=== PATIENT | male | born 1955 | race Caucasian/White ===

== ENCOUNTER 2018-03-28 06:04 | Inpatient (IN) | payer OTHER ==
[~2018-03-28] VITALS: Ht 167.6 cm; Wt 54.4 kg
[2018-03-28] VITALS (7 sets, daily range): BP systolic 99–136; BP diastolic 58–70
[~2018-03-28 06:04] MED LIST: DIOVAN320 MG PO; NORVASC10 MG PO; SIMVASTATIN40 MG PO
[2018-03-28 06:37] LABS: ABSOLUTE BASOPHILS 0.1 thou/uL (0.0-0.2); ABSOLUTE EOSINOPHILS 0.4 thou/uL (0.0-0.7); ABSOLUTE LYMPHOCYTES 1.7 thou/uL (0.8-5.3); ABSOLUTE MONOCYTES 0.8 thou/uL (0.0-1.2); ABSOLUTE NEUTROPHILS 4.3 thou/uL (1.6-8.1); BASOPHILS 1.8 %; EOSINOPHILS 5.6 %; HEMATOCRIT 42.1 % (42.0-52.0); HEMOGLOBIN 14.5 gm/dL (14.0-18.0); LYMPHOCYTES 23.6 %; MCH 31.9 pg (26.0-34.0); MCHC 34.4 g/dL (28.0-37.0); MCV 92.8 fL (80.0-100.0); MONOCYTES 10.8 %; MPV 6.8 fl. (7.2-11.1); NUCLEATED RBCS 0 /100WBC; PLATELET COUNT* 298 thou/uL (150-400); POLYS 58.2 %; RBC 4.53 mil/uL (4.50-6.00); RDW-CV 13.9 % (10.5-14.5); WBC 7.4 thou/uL (4.0-11.0)
[2018-03-28 06:41] LABS: CALCIUM 9.5 mg/dL (8.5-10.1); CREATININE 1.1 mg/dL (0.6-1.3); POTASSIUM 4.6 mmol/L (3.5-5.1)
--- NOTE | 2018-03-28 10:05 | EKG ---
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
[2018-03-28 11:05] LABS: HEMATOCRIT 36.2 % (42.0-52.0); HEMOGLOBIN 12.6 gm/dL (14.0-18.0); MCH 32.1 pg (26.0-34.0); MCHC 34.9 g/dL (28.0-37.0); MCV 92.2 fL (80.0-100.0); MPV 6.9 fl. (7.2-11.1); RBC 3.93 mil/uL (4.50-6.00); RDW-CV 13.6 % (10.5-14.5); WBC 10.1 thou/uL (4.0-11.0)
[2018-03-28 11:15] LABS: POTASSIUM 4.4 mmol/L (3.5-5.1)
--- NOTE | 2018-03-28 13:50 | NUR ---
PATIENT ADMITTED TO ROOM 002 AT 1300 FROM PACU. STATUS POST RIGHT CAROTID ENDARTARECTOMY. AOX4. NEUROVASCULAR CHECK INTACT WITH EXCEPTION OF MINOR RIGHT FACIAL DROOP, PROVIDER NOTIFIED IN PACU. INCISION TO RIGHT NECK, WELL APPROXIMATED, SWELLING. SMALL HEMATOMA NOTED, PROVIDER NOTIFIED BY PACU STAFF AND STATED TO JUST CONTINUE ASSESSING IT. PATIENT DRINKING ORAL FLUIDS WELL. LR FROM PACU INFUSING, WILL SALINE LOCK POST COMPLETION. PAIN RATED AT 9/10 IN RIGHT NECK WITH PRESSURE FROM ICE PACK. PRN MOPRHINE GIVEN, TO BE REASSESSED. LAC AND LFA 20G IVS FLUSHED AND WORKING WELL. URINATED 200 IN URINAL OF DARK YELLOW URINE. AT BEDSIDE. ORIENTED TO ROOM, CALL LIGHT WITHIN REACH. DENIES FURTHER CONCERNS AT THIS TIME.
--- NOTE | 2018-03-28 17:13 | NUR ---
PATIENT PROGRESSING TOWARDS ALL GOALS. NO ACUTE EVENTS SINCE ADMISSION. DENIES FURTHER CONCERNS AT THIS TIME. HOPEFUL FOR DISCHARGE IN THE MORNING.
[2018-03-29] VITALS (7 sets, daily range): BP systolic 91–119; BP diastolic 44–60
--- NOTE | 2018-03-29 05:30 | NUR ---
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
[2018-03-29] MEDS ORDERED: NICOTINE TRANSD14 M1 TRANSDERM (09:03)
[2018-03-29] MEDS ORDERED: ASPIRIN325 PO (09:05)
[2018-03-29] MEDS ORDERED: HYDROCODON-ACE1 EAC7 PO (09:08)
--- NOTE | 2018-03-29 09:55 | NUR ---
PT CAME OUT AT 0845 DEMANDING THAT HE WAS GOING TO GO HOME AND COME BACK. HE REPORTS THAT HE WAS TOLD BY STAFF THAT HE WOULD BE OUT OF HERE IN 30 MINUTES. THE PATIENT WAS EDUCATED THAT DISCHARGE TAKES TIME AND THAT HE WOULD HAVE TO WAIT. THE PATIENT STATED THAT HE WOULD LEAVE AND COME BACK. PT WAS TOLD THAT HE COULD LEAVE AMA IF THAT WAS THE CASE. AMA PAPERWORK BROUGHT IN TO PATIENT AND HE DECLINED SIGNING THE PAPERWORK AND SAID HE WOULD WAIT FOR THE PAPERWORK. DISCHARGE PAPERWORK GONE OVER WITH PATIENT HE WAS WALKING OUT THE DOOR. HE REFUSED TO SIGN PAPERWORK ACKNOWLEDGING THAT [employer] GAVE HIM THE DISCHARGE PAPERWORK. PT DID NOT WAIT FOR PRESCRIPTION FOR HYDROCODONE. 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 PT ACKNOWLEDGED THAT HE HAS TO COME BACK AND GET IT. ASSESSMENT CHARTED. VSS. PT UP AMBULATING IN HIS ROOM WITHOUT DIFFICULTY THIS MORNING.
--- NOTE | 2018-04-06 15:18 | OP ---
[facility] [address] [place] [address] OPERATIVE REPORT Name: MAK ROSA Room: [address] IN [facility]#: [id number] Admission: 03/28/18 Attend Phys: Sravan Prado Discharge: 03/29/18 Date of : 53 Report #: [id number] THIS REPORT FOR: //name// CC: Candida Larkin DATE OF SERVICE: 03/28/2018 PREOPERATIVE DIAGNOSIS: Severe symptomatic right internal carotid artery stenosis. POSTOPERATIVE DIAGNOSIS: Severe symptomatic right internal carotid artery stenosis. PROCEDURES: 1. Carotid endarterectomy with patch angioplasty. 2. Intraoperative ultrasound with interpretation. FINDINGS ON ULTRASOUND: 1. Normal waveform velocity identified within the common and internal carotid arteries on the right. 2. No flaps or defects identified on wilson-scale imaging. 3. Patent flow identified in the internal and external carotid arteries on color flow. SURGEON: Dg Tao MD ASSISTANTS: resident Cameron and headend technician. COMPLICATIONS: None. ESTIMATED BLOOD LOSS: 100 mL. SPECIMENS: Includes plaque. ANESTHESIA: General. INDICATIONS FOR PROCEDURE: The patient is a very pleasant 62-year-old white male, who presented to our office with amaurosis fugax of the right eye and a TIA with left leg weakness that has completely resolved. He has a tight lesion of his right internal carotid artery. It was recommended that he undergo a very urgent carotid endarterectomy given his TIA and amaurosis fugax symptoms. Informed consent was obtained from the patient with risks including but not limited to bleeding, infection, need for further surgery, pain, , heart attack, stroke, cranial nerve injury. He understood these risks and was [facility] [address] [place] [address] OPERATIVE REPORT Name: MAK ROSA Room: [address]#: [id number] Admission: 03/28/18 Attend Phys: Sravan Prado Discharge: 03/29/18 Date of : 53 Report #: [id number] agreeable to proceed. DESCRIPTION OF PROCEDURE: The patient was taken to the OR and placed in supine position. After adequate general anesthesia was initiated, timeout was performed. The patient's right neck was prepped and draped in usual sterile fashion. The patient received appropriate perioperative antibiotics. The patient was systemically heparinized throughout the critical portion of the procedure. I created a transverse incision in the patient's right neck. Sharp and blunt dissections were carried down to the common carotid artery. I entered the carotid sheath. I controlled the branches of the internal and external carotid artery. I created a longitudinal arteriotomy from the common onto the internal carotid artery. There was a large amount of friable, ulcerative, severely stenotic plaque. I placed a 10 shunt without difficulty. I used a [place] elevator and a pair of pickups to perform endarterectomy of the common carotid artery. I performed an eversion endarterectomy of the external carotid artery and I continued my endarterectomy up into the internal. The plaque extended quite a ways. I reached the limits of how high I could dissect out the plaque and still did not get through a good endpoint. I transected the plaque at this location. I tacked down the leading edge of the flap, leading into the more distal internal carotid artery using 7-0 Prolene suture. I then used a bovine pericardial patch 8 x 0.8 and a running 6-0 Prolene suture to close my arteriotomy. At the completion of the repair, there was adequate hemostasis and excellent blood flow into the internal and external carotid arteries. I performed intraoperative ultrasound with findings noted above. I corrected the heparin with protamine, controlled bleeding as needed with electrocautery, ties and clips and as well as some Bibi. I closed the wound in multiple layers using 2-0 Vicryl, 3-0 Vicryl and Stratafix for the skin. Incision was dressed with Dermabond. The patient was taken alert and awake to recovery room in good condition, moving all extremities without evidence of TIA or stroke. <ELECTRONICALLY SIGNED> By: Renny Hope DO 04/06/18 1518 1010 Brad Tao MD /genia
--- NOTE | 2018-06-25 14:10 | PATH ---
[facility] [address] [facility] [place] [address] PATHOLOGY RPT PROCEDURE Name: SHELLEYMAK Yousif Room: [address] IN ..#: [id number] Admission: 03/28/18 Date of : 53 Discharge: 03/29/18 Report #: [id number] Path Case #: [id number] [facility] Accession Number: [id number] . 01 Material submitted: . RIGHT CAROTID PLAQUE . 01 Clinical history: . Carotid artery plaque . 02 Diagnosis: Right carotid plaque: - Fibrointimal atherosclerotic plaque with prominent calcification. (JU:; 03/31/18) QRQ/03/31/2018 . 02 Electronically signed: . Jose Roberts MD, Pathologist NPI- [id number] . 01 Gross description: . The specimen is received in formalin, labeled "[place], right carotid plaque". Received are multiple segments of slightly calcified pale padilla rubbery tissue measuring 2.6 x 2.5 x 1.0 cm in aggregate dimensions. The specimen is submitted representatively in cassette A1, following light decalcification. (CAA; 03/28/2018) QAC/QAC . 02 Pathologist provided ICD-10: I65.21 . 02 CPT . 501926, 421067 Performed at: [address], [place] [id number] MD Tyler Trivedi MD Phone: [phone] Performed at: 02 [facility] [address], [place], [place] [id number] MD Jose Roberts MD Phone: [phone]
== END 2018-03-29 09:15 | disposition home or self-care (01) | DRG 39 ==
LOC: M.TBA 06:04 → M.PRE 06:43 → M.ICU 13:00 → M.PRE 13:45 → M.ICU 03-29 09:15
PROVIDERS: Surgery Vascular Surgery; ADMIT Internal Medicine
PROC: 03CK0ZZ Extirpation of Matter from Right Internal Carotid Artery, Open Approach (ICD-10-PCS; principal; 2018-03-28)
PROC: 03UK0KZ Supplement Right Internal Carotid Artery with Nonautologous Tissue Substitute, Open Approach (ICD-10-PCS; principal; 2018-03-28)
DX: I65.21 Occlusion and stenosis of right carotid artery (principal); E78.5 Hyperlipidemia, unspecified; I73.9 Peripheral vascular disease, unspecified; I10 Essential (primary) hypertension; J44.9 Chronic obstructive pulmonary disease, unspecified; F17.210 Nicotine dependence, cigarettes, uncomplicated; N40.0 Benign prostatic hyperplasia without lower urinary tract symptoms; Z79.82 Long term (current) use of aspirin; Z79.899 Other long term (current) drug therapy

== ENCOUNTER 2018-04-02 10:54 | Observation (INO) | payer OTHER ==
[~2018-04-02] VITALS: Ht 152.4 cm; Wt 53.1 kg
[~2018-04-02 10:54] MED LIST changes: +ASPIRIN325 PO; +HYDROCODON-ACE1 EAC7 PO; +NICOTINE TRANSD14 M1 TRANSDERM
[2018-04-02 10:58] VITALS: BP 141/62
[2018-04-02 11:16] LABS: ABSOLUTE BASOPHILS 0.1 thou/uL (0.0-0.2); ABSOLUTE EOSINOPHILS 0.3 thou/uL (0.0-0.7); ABSOLUTE LYMPHOCYTES 1.9 thou/uL (0.8-5.3); ABSOLUTE NEUTROPHILS 6.4 thou/uL (1.6-8.1); BASOPHILS 1.2 %; EOSINOPHILS 2.8 %; HEMATOCRIT 36.6 % (42.0-52.0); HEMOGLOBIN 12.6 gm/dL (14.0-18.0); LYMPHOCYTES 19.5 %; MCH 31.9 pg (26.0-34.0); MCHC 34.4 g/dL (28.0-37.0); MCV 92.5 fL (80.0-100.0); MONOCYTES 9.9 %; MPV 6.8 fl. (7.2-11.1); NUCLEATED RBCS 0 /100WBC; PLATELET COUNT* 313 thou/uL (150-400); POLYS 66.6 %; RBC 3.95 mil/uL (4.50-6.00); RDW-CV 13.5 % (10.5-14.5); WBC 9.7 thou/uL (4.0-11.0)
[2018-04-02 11:28] LABS: ANION GAP 8 mmol/L (7-16); BUN 18 mg/dL (7-18); CALCIUM 9.1 mg/dL (8.5-10.1); CHLORIDE 102 mmol/L (98-107); CO2 28 mmol/L (21-32); CREATININE 1.1 mg/dL (0.6-1.3); GLUCOSE 119 mg/dL (70-99); POTASSIUM 4.4 mmol/L (3.5-5.1); SODIUM 138 mmol/L (136-145)
[2018-04-02 11:30] LABS: APTT 26.4 Seconds (25.0-31.3); PROTIME 9.7 Seconds (9.20-11.50)
[2018-04-02 11:38] LABS: ALBUMIN 3.4 g/dL (3.4-5.0); ALKALINE PHOSPHATASE 70 U/L (46-116); NT-PRO BRAIN NAT PEPTIDE 114 pg/mL (<300); SGOT 17 U/L (15-37); SGPT 16 U/L (30-65); TOTAL BILIRUBIN 0.3 mg/dL (<0.1-1.0); TROPONIN-I LEVEL <0.06 ng/mL (<0.06)
[2018-04-02 12:07] LABS: URINE BILIRUBIN NEGATIVE (Negative); URINE BLOOD NEGATIVE (Negative); URINE CLARITY CLEAR; URINE COLOR YELLOW; URINE GLUCOSE-RANDOM NEGATIVE (Negative); URINE KETONES TRACE (Negative); URINE LEUKOCYTES-REFLEX NEGATIVE (Negative); URINE NITRITE-REFLEX NEGATIVE (Negative); URINE PROTEIN TRACE (Negative); URINE SPECIFIC GRAVITY 1.025 (1.005-1.030); URINE UROBILINOGEN 0.2 E.U./dl (0.2-1.0)
[2018-04-02 14:18] VITALS: BP 157/72
--- NOTE | 2018-04-02 15:53 | EKG ---
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
[2018-04-02 16:00] VITALS: BP 156/65
--- NOTE | 2018-04-02 16:52 | 2DMMODE ---
[place] [address] 2 D/M-MODE ECHOCARDIOGRAM Name: MAK ROSA Room: [address] IN [facility]#: [id number] Admission: 04/02/18 Attend Phys: Rudy Harden, Discharge: Date of : 53 Date of Service: 04/02/18 1651 Report #: [id number] THIS REPORT FOR: //name// APPROVED REPORT Study performed: 04/02/2018 15:32:00 EXAM: Comprehensive 2D, Doppler, and color-flow Echocardiogram Patient Location: In-Patient Room #: [facility] Status: routine BSA: 1.60 HR: 86 bpm BP: 157/72 mmHg Rhythm: NSR Other Information Study Quality: Good Indications CVA/TIA Echo Enhancing Agent Indication: Rule out Shunt Agent(s) / Amount(s) Used: Agitated Saline 10 cc 2D Dimensions LVEF(%): 62.07 (>50%) IVSd: 9.29 (7-11mm) LVOT Diam: 20.69 (18-24mm) LVDd: 36.59 mm PWd: 8.65 (7-11mm) LVDs: 24.61 (25-40mm) Aortic Root: 29.12 mm Vizcarra's LVEF: 62.07 % Volumes Left Atrial Volume (Systole) LA ESV Index: 22.90 mL/m2 Aortic Valve AoV Peak Easton.: 1.12 m/s AO Peak Gr.: 5.06 mmHg LVOT Max P.88 mmHg AO Mean Gr.: 2.96 mmHg LVOT Mean P.50 mmHg LVOT Max V: 1.10 m/s AO V2 VTI: 23.95 cm LVOT Mean V: 0.74 m/[place] [address] 2 D/M-MODE ECHOCARDIOGRAM Name: MAK ROSA Room: [address] IN ..#: [id number] Admission: 04/02/18 Attend Phys: Rudy Harden, Discharge: Date of : 53 Date of Service: 04/02/18 1651 Report #: [id number] BETTY (VTI): 3.54 cm2 LVOT V1 VTI: 25.22 cm Mitral Valve E/A Ratio: 0.85 MV Decel. Time: 178.19 ms MV E Max Easton.: 0.97 m/s MV PHT: 51.67 ms MVA (PHT): 4.26 cm2 TDI E/Lateral E': 7.46 E/Medial E': 9.70 Medial E' Easton.: 0.10 m/s Lateral E' Easton.: 0.13 m/s Pulmonary Valve PV Peak Easton.: 0.94 m/s PV Peak Gr.: 3.57 mmHg Tricuspid Valve TR Peak Gr.: 21.46 mmHg RVSP: 26.00 mmHg Left Ventricle The left ventricle is normal size. There is normal LV segmental wall motion. There is normal left ventricular wall thickness. Left ventricular systolic function is normal. The left ventricular ejection fraction is within the normal range. LVEF is 60-65%. Grade I - abnormal relaxation pattern. Right Ventricle The right ventricle is normal size. The right ventricular systolic function is normal. Atria The left atrium size is normal. Interatrial septum is intact without evidence of ASD or PFO. The right atrium size is normal. Aortic Valve Moderate aortic valve sclerosis. No aortic regurgitation is present. There is no aortic valvular stenosis. Mitral Valve There is mitral annular calcification. There is no mitral valve regurgitation noted. No evidence of mitral valve stenosis. Tricuspid Valve The tricuspid valve is normal in structure. Mild tricuspid regurgitation. The RVSP is ___26____ [place] [address] 2 D/M-MODE ECHOCARDIOGRAM Name: MAK ROSA Room: [address] IN M.R.#: [id number] Admission: 04/02/18 Attend Phys: Rudy Harden, Discharge: Date of : 53 Date of Service: 04/02/18 1651 Report #: [id number] Pulmonic Valve The pulmonary valve is normal in structure. Trace pulmonic regurgitation. Great Vessels The aortic root is normal in size. IVC is normal in size and collapses with >50% inspiration Pericardium There is no pericardial effusion. <Conclusion> The left ventricle is normal size. There is normal left ventricular wall thickness. Left ventricular systolic function is normal. The left ventricular ejection fraction is within the normal range. LVEF is 60-65%. Grade I - abnormal relaxation pattern. The right ventricle is normal size. The left atrium size is normal. Moderate aortic valve sclerosis. No aortic regurgitation is present. There is no aortic valvular stenosis. There is mitral annular calcification. There is no mitral valve regurgitation noted. No evidence of mitral valve stenosis. The tricuspid valve is normal in structure. Mild tricuspid regurgitation. The RVSP is ___26____ mmHg. IVC is normal in size and collapses with >50% inspiration There is no pericardial effusion. There is normal LV segmental wall motion. Interatrial septum is intact without evidence of ASD or PFO. <ELECTRONICALLY SIGNED> By: Luther Wang MD, FACC 04/02/181650 50 50 Luther Wang MD, FACC /INF
[2018-04-02 20:56] VITALS: BP 115/71
[2018-04-03] VITALS: BP 124/58
[2018-04-03 04:00] VITALS: BP 119/56
[2018-04-03 04:06] LABS: GLYCOHEMOGLOBIN (HGB A1C) 5.4 % (4.8-5.6)
[2018-04-03 04:57] LABS: ABSOLUTE BASOPHILS 0.1 thou/uL (0.0-0.2); ABSOLUTE EOSINOPHILS 0.3 thou/uL (0.0-0.7); ABSOLUTE LYMPHOCYTES 2.1 thou/uL (0.8-5.3); ABSOLUTE MONOCYTES 0.9 thou/uL (0.0-1.2); ABSOLUTE NEUTROPHILS 4.8 thou/uL (1.6-8.1); BASOPHILS 1.2 %; EOSINOPHILS 3.6 %; HEMATOCRIT 35.1 % (42.0-52.0); HEMOGLOBIN 12.1 gm/dL (14.0-18.0); MCH 31.9 pg (26.0-34.0); MCHC 34.3 g/dL (28.0-37.0); MCV 92.9 fL (80.0-100.0); MONOCYTES 10.6 %; MPV 7.1 fl. (7.2-11.1); NUCLEATED RBCS 0 /100WBC; PLATELET COUNT* 296 thou/uL (150-400); POLYS 58.6 %; RBC 3.78 mil/uL (4.50-6.00); RDW-CV 13.6 % (10.5-14.5); WBC 8.2 thou/uL (4.0-11.0)
[2018-04-03 05:12] LABS: ANION GAP 8 mmol/L (7-16); BUN 16 mg/dL (7-18); CHLORIDE 101 mmol/L (98-107); CHOLESTEROL 142 mg/dL (<200); CO2 28 mmol/L (21-32); CREATININE 0.9 mg/dL (0.6-1.3); GLUCOSE 94 mg/dL (70-99); HDL CHOLESTEROL 54 mg/dL (>40); LDL CHOLESTEROL 76 mg/dL (<100); POTASSIUM 4.9 mmol/L (3.5-5.1); SERUM ASSESSMENT Clear; SODIUM 137 mmol/L (136-145); TC:HDL 2.6 Ratio (Not establshd); TRIGLYCERIDE 64 mg/dL (<150); VLDL 13 mg/dL (<40)
[2018-04-03 08:00] VITALS: BP 149/62
[2018-04-03 12:04] VITALS: BP 149/62
[2018-04-03] MEDS ORDERED: AUGMENTIN 875-1 EACH PO (12:04)
== END 2018-04-03 12:32 | disposition home or self-care (01) ==
LOC: M.ERS 10:54 → M.2W 12:10 → M.TBA-ER 12:10 → M.2W 12:10
PROVIDERS: Family Medicine; ADMIT Internal Medicine
DX: I65.21 Occlusion and stenosis of right carotid artery (principal); H53.8 Other visual disturbances; G44.221 Chronic tension-type headache, intractable; J20.9 Acute bronchitis, unspecified; J43.9 Emphysema, unspecified; I73.9 Peripheral vascular disease, unspecified; J44.9 Chronic obstructive pulmonary disease, unspecified; I10 Essential (primary) hypertension; E78.5 Hyperlipidemia, unspecified; F17.210 Nicotine dependence, cigarettes, uncomplicated; Z95.828 Presence of other vascular implants and grafts; Z72.89 Other problems related to lifestyle

== ENCOUNTER → 2018-09-09 | Outpatient (CLI) | payer OTHER ==
[~2018-09-09] MED LIST changes: +AUGMENTIN 875-1 EACH PO
== END ==
LOC: M.RAD 07:53
DX: J44.9 Chronic obstructive pulmonary disease, unspecified (principal); R04.2 Hemoptysis

== ENCOUNTER 2021-02-27 07:01 | Inpatient (IN) | payer OTHER ==
[~2021-02-27] VITALS: Ht 167.6 cm; Wt 53.9 kg
[2021-02-27] VITALS (47 sets, daily range): BP systolic 72–149; BP diastolic 20–102
--- NOTE | ~2021-02-27 | PROC ---
[facility] [address] [place] [address] PROCEDURE REPORT Name: MAK ROSA Room: [address] IN .R.#: [id number] Admission: 02/27/21 Attend Phys: Sravan Prado Discharge: 03/28/21 Date of : 53 Report #: [id number] THIS REPORT FOR: cc: Candida Chavez MD, Katrina MD [facility],Medical Records Staff ~ For GI report, please see the Provation report in Perceptive 7 content. By: 1442Medical Records Staff [facility] /EHSAN
[2021-02-27] MEDS ORDERED: FAMOTIDINE 20 M20 MG PO (07:18)
[2021-02-27] MEDS ORDERED: TOPROL XL100 MG PO (07:19)
[2021-02-27] MEDS ORDERED: FEOSOL325 M1 PO (07:19)
[2021-02-27] MEDS ORDERED: LIPITOR40 MG PO (07:20)
[2021-02-27] MEDS ORDERED: ASA81BEC PO (07:20)
[2021-02-27] MEDS ORDERED: MIRALAX119 GM PO (07:20)
[2021-02-27] MEDS ORDERED: TRELEGY ELLIPT1 EACH INH (07:21)
[2021-02-27] MEDS ORDERED: SUPER THERAVIT1 EACH PO (07:21)
[2021-02-27 07:49] LABS: ABSOLUTE LYMPHOCYTES 0.7 thou/uL (0.8-5.3); ABSOLUTE MONOCYTES 0.7 thou/uL (0.0-1.2); ABSOLUTE NEUTROPHILS 4.6 thou/uL (1.6-8.1); BASOPHILS 0.2 %; EOSINOPHILS 0.2 %; HEMATOCRIT 41.8 % (42.0-52.0); HEMOGLOBIN 13.8 gm/dL (14.0-18.0); LYMPHOCYTES 11.4 %; MCHC 33.1 g/dL (28.0-37.0); MCV 93.6 fL (80.0-100.0); MPV 8.2 fl. (7.2-11.1); NUCLEATED RBCS 0 /100WBC; PLATELET COUNT* 326 thou/uL (150-400); POLYS 77.2 %; RBC 4.47 mil/uL (4.50-6.00); RDW-CV 16.9 % (10.5-14.5)
[2021-02-27 08:04] LABS: ALBUMIN 3.3 g/dL (3.4-5.0); CALCIUM 9.4 mg/dL (8.5-10.1); POTASSIUM 4.2 mmol/L (3.5-5.1); TOTAL BILIRUBIN 0.6 mg/dL (<0.1-1.0); TOTAL PROTEIN 7.2 g/dL (6.4-8.2)
[2021-02-27 08:41] LABS: % SATURATION 10 % (20-39); IRON 28 ug/dL (50-175)
--- NOTE | 2021-02-27 09:55 | EKG ---
[place] [address] ELECTROCARDIOGRAM REPORT Name: MAK ROSA Room: [address]R.#: [id number] Admission: 02/27/21 Attend Phys: Omi Larkin Discharge: Date of : 53 Date of Service: 02/27/21 0747 Report #: [id number] THIS REPORT FOR: //name// [facility] ED Test Date: 2021-02-27 Test Time: 07:47:00 Pat Name: MAK ROSA Department: Room: [facility] Gender: M Ceo: MANFRED : 1955 Requested By: Jero Quick Order Number: [id number] MD: uRben Spencer Measurements Intervals [place] Rate: 99 P: 72 MD: 162 QRS: 86 QRSD: 88 T: 239 QT: 324 QTc: 416 Interpretive Statements Sinus rhythm Borderline right axis deviation Borderline repolarization abnormality artifact noted Compared to ECG 04/02/2018 11:02:50 ST (T wave) deviation now present Electronically Signed On 02-27-2021 9:55:26 CDT by Ruben Spencer [email or web address] <ELECTRONICALLY SIGNED> By: Ruben Spencer MD, [facility] 02/27/21 0955 0747 0747 Ruben Spencer MD, [facility] /EPI
--- NOTE | 2021-02-27 13:25 | NUR ---
ADMIT FROM ER TO RM 223 PATIENT TO FLOOR VIA BED ASSIST OF 1 TO BED IN ROOM ORIENTED TO RM AND CALL LIGHT AT BEDSIDE
[2021-02-27 15:14] LABS: ABSOLUTE LYMPHOCYTES 0.4 thou/uL (0.8-5.3); ABSOLUTE MONOCYTES 0.3 thou/uL (0.0-1.2); ABSOLUTE NEUTROPHILS 2.7 thou/uL (1.6-8.1); BASOPHILS 0.1 %; EOSINOPHILS 0.1 %; HEMATOCRIT 39.7 % (42.0-52.0); HEMOGLOBIN 13.2 gm/dL (14.0-18.0); LYMPHOCYTES 11.9 %; MCH 30.8 pg (26.0-34.0); MCHC 33.2 g/dL (28.0-37.0); MCV 92.9 fL (80.0-100.0); MPV 7.8 fl. (7.2-11.1); NUCLEATED RBCS 0 /100WBC; PLATELET COUNT* 285 thou/uL (150-400); POLYS 79.9 %; RBC 4.27 mil/uL (4.50-6.00); RDW-CV 16.6 % (10.5-14.5); WBC 3.3 thou/uL (4.0-11.0)
[2021-02-27 15:21] LABS: CALCIUM 8.7 mg/dL (8.5-10.1); CREATININE 2.6 mg/dL (0.6-1.3); POTASSIUM 4.8 mmol/L (3.5-5.1)
--- NOTE | 2021-02-27 15:41 | EKG ---
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 : 1955 Requested By: Jero Quick Order Number: [id number] MD: Ruben Spencer Measurements Intervals [place] Rate: 92 P: 66 MN: 150 QRS: 86 QRSD: 87 T: 257 QT: 350 QTc: 433 Interpretive Statements Sinus rhythm Borderline right axis deviation Nonspecific T abnormalities, diffuse leads Compared to ECG 02/27/2021 07:47:00 no change Electronically Signed On 02-27-2021 15:40:57 CDT by Ruben Spencer [email or web address] <ELECTRONICALLY SIGNED> By: Ruben Spencer MD, [facility] 02/27/21 1540 0809 0809 Ruben Spencer MD, [facility] /EPI
--- NOTE | 2021-02-27 18:20 | NUR ---
PATIENT WITH INCREASING RESP DISTRESS NOW ON BIPAP R IN THE 30S AND HR 130S CALL TO DR TO MOVE TO ICU TX TO ICU RM 5 PATIENT WITH BELONGIGNS MOVED VIA BED ON BIPAP NOTIFIED
--- NOTE | 2021-02-27 20:38 | NUR ---
PATIENT ARRIVED AT 1823 IN ICU BED 5. TELE NURSES AT BEDSIDE. PATIENT PLACED IN ICU BED AND HOOKED UP TO MONITOR. PATIENT ON BIPAP 100%FIO2 WITH SATS IN THE LOW 90'S, LABORED BREATHING, AND TACHYPNEA WITH RR IN UPPER TO LOW 40'S. DR RIGGS NOTIFIED. DR RIGGS CAME TO BEDSIDE AND ORDERED FOR PATIENT TO BE INTUBATED. ER PHYSICIAN CALLED AND DR PRATHER WAS RIGHT OVER TO THE ICU. MEDICATIONS WERE GIVEN PER ORDERS TO RELAX AND SEDATE PATIENT. HE WAS INTUBATED WITH A 7.5 ETT 22 AT LIP. OG PLACED AT 65 AT LIP, PLACEMENT CHECKED. PATIENT TOLERATED PROCEDURE. PATIENT'S SHOSHANA WAS NOTIFIED AND MADE AWARE OF THE SITUATION. REPORT GIVEN TO ONCOMING NURSE. NO FURTHER CONCERNS AT THIS TIME. WILL CONTINUE TO MONITOR AND CARE PER PLAN OF CARE.
[2021-02-27 22:03] LABS: BE -1.9 mmol/L (-2 to +3)
[2021-02-27 22:07] LABS: PCO2 70.4 mmHg (35.0-45.0); pH 7.211 (7.340-7.450)
--- NOTE | 2021-02-27 22:22 | NUR ---
1900 Dr Lara to see pt. Decision was made to intubate. 1909 Dr. Alvarenga to Rm 191 Etomidate 20mg, Succinylcholine 100mg, Versed 5mg for sedation. [address] Alvarenga intubated with 7.5 ETT 22 at the teeth. OG placed at 65 cm suction 500 dark brown in 5min. PT became hypotensive, OG clamped for 1hr. 4L NS bolus given see DEC for sedation ordered 2014 ETT advanced to 24cm
[2021-02-28] VITALS (44 sets, daily range): BP systolic 69–197; BP diastolic 39–117
[2021-02-28 00:59] LABS: BE -2.4 mmol/L (-2 to +3)
[2021-02-28 01:16] LABS: PCO2 52.6 mmHg (35.0-45.0); PO2 59.3 mmHg (75.0-100.0)
[2021-02-28 03:17] LABS: HEMATOCRIT 36.6 % (42.0-52.0); HEMOGLOBIN 12.2 gm/dL (14.0-18.0); MCH 31.5 pg (26.0-34.0); MCHC 33.2 g/dL (28.0-37.0); MCV 94.9 fL (80.0-100.0); MPV 8.8 fl. (7.2-11.1); RBC 3.86 mil/uL (4.50-6.00); RDW-CV 16.7 % (10.5-14.5)
[2021-02-28 03:27] LABS: WBC 1.3 thou/uL (4.0-11.0)
[2021-02-28 03:30] LABS: CALCIUM 7.1 mg/dL (8.5-10.1); CREATININE 2.5 mg/dL (0.6-1.3); POTASSIUM 4.3 mmol/L (3.5-5.1)
[2021-02-28 04:49] LABS: BE -5.2 mmol/L (-2 to +3); PCO2 44.7 mmHg (35.0-45.0); PO2 75.7 mmHg (75.0-100.0)
[2021-02-28 04:58] LABS: pH 7.294 (7.340-7.450)
[2021-02-28 11:39] LABS: BE -7.3 mmol/L (-2 to +3); PCO2 42.5 mmHg (35.0-45.0); PO2 79.8 mmHg (75.0-100.0)
[2021-02-28 11:40] LABS: pH 7.273 (7.340-7.450)
[2021-02-28 12:04] LABS: ALBUMIN 1.8 g/dL (3.4-5.0); CALCIUM 6.9 mg/dL (8.5-10.1); CREATININE 3.1 mg/dL (0.6-1.3); MAGNESIUM 1.9 mg/dL (1.8-2.4); PHOSPHORUS* 6.4 mg/dL (2.5-4.9); POTASSIUM 4.8 mmol/L (3.5-5.1); TOTAL BILIRUBIN 0.4 mg/dL (<0.1-1.0); TOTAL PROTEIN 4.3 g/dL (6.4-8.2)
[2021-02-28 12:07] LABS: HEMATOCRIT 27.9 % (42.0-52.0); MCH 31.3 pg (26.0-34.0); MCHC 32.6 g/dL (28.0-37.0); MCV 96.2 fL (80.0-100.0); MPV 8.4 fl. (7.2-11.1); NUCLEATED RBCS 0 /100WBC; PLATELET COUNT* 163 thou/uL (150-400); RDW-CV 17.1 % (10.5-14.5)
[2021-02-28 12:08] LABS: HEMOGLOBIN 9.1 gm/dL (14.0-18.0); WBC 4.9 thou/uL (4.0-11.0)
[2021-02-28 12:28] LABS: APTT 41.4 Seconds (25.0-31.3); INR 1.3; PROTIME 13.5 Seconds (9.20-11.50)
[2021-02-28 12:34] LABS: ABSOLUTE LYMPHOCYTES 0.5 thou/uL (0.8-5.3); ABSOLUTE MONOCYTES 0.2 thou/uL (0.0-1.2); ABSOLUTE NEUTROPHILS 4.1 thou/uL (1.6-8.1); PLATELET ESTIMATE ADEQUATE
[2021-02-28 13:54] LABS: URINE BILIRUBIN NEGATIVE (Negative); URINE BLOOD 1+ (Negative); URINE CLARITY CLEAR; URINE COLOR DARK YELLOW; URINE GLUCOSE-RANDOM NEGATIVE (Negative); URINE KETONES NEGATIVE (Negative); URINE LEUKOCYTES-REFLEX NEGATIVE (Negative); URINE NITRITE-REFLEX NEGATIVE (Negative); URINE PROTEIN 1+ (Negative); URINE SPECIFIC GRAVITY 1.025 (1.005-1.030); URINE UROBILINOGEN 0.2 E.U./dl (0.2-1.0)
[2021-02-28 14:02] LABS: CASTS None Seen /LPF (None Seen); CRYSTALS None Seen /LPF (None Seen); SQUAMOUS 0-3 Few /LPF (0-3); URINE RBC 0-2 Rare /HPF (0-2); URINE WBC-REFLEX 0-5 Rare /HPF (0-5)
--- NOTE | 2021-02-28 14:29 | NUR ---
RIGHT BASILIC VESSEL ACCESSED FOR 5 BULGARIAN TRIPLE LUMEN PICC. LINE PRE-TRIMMED TO 38CM AND ADVANCED TO THE ZERO MAK WITH NO RESISTANCE MET. UPPER AMR CICUMFERENCE ABOVE INSERTION SITE= 8 1/2". SHERLOCK MAGNET AND 3CG CONFIRAMTION OF TIP TERMINATION AT THE CAVOATRIAL JUNCTION APPRECIATED. GUIDE WIRE REMOVED, LINE FLUSHED AND INSERTION SITE DRESSED. REPORT GIVEN TO JAJA HEATH.
--- NOTE | 2021-02-28 15:57 | NUR ---
ICU rounds: Pt intubated and sedated. Art line. Pt had open heart surgery r6ywwow ago at [facility]. ABD xray planned. away from bedside when CM went to assess, will attempt to assess later.
--- NOTE | 2021-02-28 15:59 | 2DMMODE ---
[place] [address] 2 D/M-MODE ECHOCARDIOGRAM Name: MAK ROSA Room: [address] IN [facility]#: [id number] Admission: 02/27/21 Attend Phys: Omi Larkin Discharge: Date of : 53 Date of Service: 02/28/21 1558 Report #: [id number] THIS REPORT FOR: cc: Candida Chavez MD, Katrina MD Liston, Michael J. MD [facility] ~ APPROVED REPORT Study performed: 02/28/2021 14:43:25 EXAM: Comprehensive 2D, Doppler, and color-flow Echocardiogram Patient Location: In-Patient Room #: [facility] Status: routine BSA: 1.59 HR: 108 bpm BP: 78/48 mmHg Rhythm: NSR Other Information Study Quality: Adequate Technically limited study due to off axis apical imaging. Indications CAD 2D Dimensions IVSd: 7.54 (7-11mm) LVOT Diam: 22.15 (18-24mm) LVDd: 35.32 mm PWd: 5.85 (7-11mm) LVDs: 20.40 (25-40mm) Aortic Root: 29.15 mm Aortic Valve AoV Peak Easton.: 1.46 m/s AO Peak Gr.: 8.53 mmHg LVOT Max P.80 mmHg AO Mean Gr.: 4.43 mmHg LVOT Mean P.46 mmHg LVOT Max V: 1.10 m/s AO V2 VTI: 20.67 cm LVOT Mean V: 0.73 m/s BETTY (VTI): 2.82 cm2 LVOT V1 VTI: 15.10 cm Mitral Valve E/A Ratio: 0.64 [place] [address] 2 D/M-MODE ECHOCARDIOGRAM Name: MAK ROSA Room: [address] IN ..#: [id number] Admission: 02/27/21 Attend Phys: Omi Larkin Discharge: Date of : 53 Date of Service: 02/28/21 1558 Report #: [id number] MV Decel. Time: 171.57 ms MV E Max Easton.: 0.91 m/s MV PHT: 49.76 ms MVA (PHT): 4.42 cm2 Pulmonary Valve PV Peak Easton.: 1.34 m/s PV Peak Gr.: 7.21 mmHg Tricuspid Valve RAP Estimate: 5.00 mmHg TR Peak Gr.: 39.88 mmHg RVSP: 44.00 mmHg PA Pressure: 44.00 mmHg Left Ventricle The left ventricle is normal size. There is normal LV segmental wall motion. There is normal left ventricular wall thickness. Left ventricular systolic function is normal. LVEF is 65-70%. Grade I - abnormal relaxation pattern. Right Ventricle The right ventricle is normal size. The right ventricular systolic function is normal. Atria The left atrium size is normal. The right atrium size is normal. Aortic Valve Mild aortic valve sclerosis. No aortic regurgitation is present. There is no aortic valvular stenosis. Mitral Valve There is mitral annular calcification. There is no mitral valve regurgitation noted. No evidence of mitral valve stenosis. Tricuspid Valve The tricuspid valve is normal in structure. Mild tricuspid regurgitation. Moderate pulmonary hypertension. The RVSP is 45-50 mmHg. Pulmonic Valve The pulmonary valve is normal in structure. Mild pulmonic regurgitation. Great Vessels The aortic root is normal in size. IVC [place] [address] 2 D/M-MODE ECHOCARDIOGRAM Name: SHELLEYMAK Dodd Room: [address] IN [facility].#: [id number] Admission: 02/27/21 Attend Phys: Omi Larkin Discharge: Date of : 53 Date of Service: 02/28/21 1558 Report #: [id number] collapses >50% with inspiration. Pericardium There is no pericardial effusion. <Conclusion> The left ventricle is normal size. There is normal left ventricular wall thickness. Left ventricular systolic function is normal. LVEF is 65-70%. Grade I - abnormal relaxation pattern. There is normal LV segmental wall motion. Mild aortic valve sclerosis. There is mitral annular calcification. Mild tricuspid regurgitation. Moderate pulmonary hypertension. The RVSP is 45-50 mmHg. <ELECTRONICALLY SIGNED> By: Justin Bravo MD, FACC 02/28/21 1558 1558 1558 Justin Bravo MD, FACC /INF
[2021-02-28 16:28] LABS: CALCIUM 6.7 mg/dL (8.5-10.1); CREATININE 2.8 mg/dL (0.6-1.3)
[2021-02-28 16:29] LABS: POTASSIUM 3.8 mmol/L (3.5-5.1)
[2021-02-28 16:41] LABS: BE -6.7 mmol/L (-2 to +3); PCO2 36.3 mmHg (35.0-45.0); pH 7.328 (7.340-7.450)
[2021-02-28 16:44] LABS: PO2 126.9 mmHg (75.0-100.0)
--- NOTE | 2021-02-28 17:24 | CON ---
[address] [address] CONSULTATION Name: MAK ROSA Room: [address] IN [facility]#: [id number] Admission: 02/27/21 Attend Phys: Sravan Prado Discharge: Date of : 53 Report #: [id number] THIS REPORT FOR: cc: Candida Chavez MD, Katrina MD Blick,Ruben Calhoun MD [facility] ~ DOC #: [id number] cc: MD Ruben Alejandro MD [facility] DATE OF CONSULTATION: 02/27/2021 CARDIOLOGY CONSULTATION HISTORY OF PRESENT ILLNESS: The patient is a 65-year-old white male whom I was asked to see in the emergency room today because of his history of coronary artery disease. The patient states that he has a long history of PAD. He was found to have coronary artery disease and on 01/27/2021, underwent 3-vessel bypass surgery at [facility] [place] He was just discharged a couple weeks ago. Since he has been discharged, he has not felt very well. He has had no appetite. Denies any chest tightness or increased shortness of breath. He has had some edema. Recently, he has been vomiting. He notes his blood was black. He actually saw his primary care physician and the surgical team 3 days ago as an outpatient. No changes were made. However, in the weekend, he continued to vomit black vomitus. He denies any syncope. He has had no blood in the stool. He finally came to the hospital today and was admitted for further evaluation and treatment. He denied any fever, abdominal pain. PAST MEDICAL HISTORY: He has had previous right carotid endarterectomy. Eight years ago, he was found to have PAD and underwent aortobifemoral bypass surgery at [facility]. Three years ago, he apparently had a stent placed in his right arm. His past medical history, otherwise significant for appendectomy. He has a history of high blood pressure, high cholesterol. He has a nebulizer. He is on home oxygen. CURRENT MEDICATIONS: Include amlodipine, aspirin, Lipitor, Pepcid, iron, metoprolol, MiraLax. ALLERGIES: HE HAS PREVIOUS INTOLERANCE TO SEROQUEL, WHICH MADE HIM CONFUSED. FAMILY HISTORY: Negative for heart disease. SOCIAL HISTORY: He is . His lives in [place]. 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 He still smokes half [place] [address] CONSULTATION Name: MAK ROSA Room: [address]#: [id number] Admission: 02/27/21 Attend Phys: Sravan Prado Discharge: Date of : 53 Report #: [id number] alcohol abuse. No illicit drug use. REVIEW OF SYSTEMS: He had no previous history of stroke, liver disease, kidney disease, arthritis, cancer, psychiatric illness, chronic skin condition. PHYSICAL EXAMINATION: GENERAL: Revealed a middle-aged male who appears in no acute distress. VITAL SIGNS: He had a blood pressure of 116/60, pulse is 90. He is afebrile. HEENT: He was anicteric. Conjunctivae pink. Mucosa membranes appear dry. NECK: Veins does not appear distended. Bilateral carotid bruits were heard. CHEST: Revealed decreased breath sounds bilaterally. CARDIOVASCULAR: Regular rate and rhythm. No murmur. ABDOMEN: Soft. EXTREMITIES: Had no edema. Dorsalis pedis pulses cannot be palpated. SKIN: Cool and dry. NEUROLOGIC: Nonfocal. LABORATORY DATA: ECG; sinus rhythm. There are small inferior Q-waves, nonspecific ST segment changes. His workup in the emergency room, he had a portable chest x-ray which showed normal heart size, clear lung mahan. A stent was noted in the right brachiocephalic artery, hyperinflated lung mahan, no effusions. His lab work, sodium 136, BUN 51, creatinine was 3.0, his glucose is 143. Troponin 0.06. His white blood cell count 6.0, hemoglobin 13.8. His COVID antigen stat test was negative. IMPRESSION AND RECOMMENDATIONS: 1. Nausea, vomiting with dark emesis, rule out hematemesis. I would hold aspirin at this time. 2. Recent coronary bypass surgery. No recurrent angina. 3. Hypertension. The patient is on a calcium juanjose and beta juanjose. 4. Hyperlipidemia. The patient is on statin drug. 5. Peripheral artery disease with previous aortobifemoral bypass. The patient is followed by Vascular Surgery. He had a previous stent placed in the right brachiocephalic artery. 6. Previous carotid endarterectomy. The patient is followed by Vascular Surgery. No recent symptoms. 7. Tobacco abuse. 8. Chronic obstructive pulmonary disease. Ruben Spencer MD [facility] [address] [address] CONSULTATION Name: MAK ROSA Room: [address] IN M.R.#: [id number] Admission: 02/27/21 Attend Phys: Sravan Prado Discharge: Date of : 53 Report #: [id number] <ELECTRONICALLY SIGNED> By: Ruben Spencer MD, FACC 02/28/21 1724 1237 [id number] Spencer MD, FACC /nt
[2021-03-01] VITALS (46 sets, daily range): BP systolic 90–139; BP diastolic 43–489
[2021-03-01 02:37] LABS: ABSOLUTE LYMPHOCYTES 0.2 thou/uL (0.8-5.3); ABSOLUTE MONOCYTES 0.3 thou/uL (0.0-1.2); ABSOLUTE NEUTROPHILS 10.1 thou/uL (1.6-8.1); HEMATOCRIT 28.6 % (42.0-52.0); HEMOGLOBIN 9.6 gm/dL (14.0-18.0); LYMPHOCYTES 1.9 %; MCH 31.3 pg (26.0-34.0); MCHC 33.4 g/dL (28.0-37.0); MCV 93.9 fL (80.0-100.0); MONOCYTES 2.7 %; MPV 8.8 fl. (7.2-11.1); NUCLEATED RBCS 0 /100WBC; PLATELET COUNT* 152 thou/uL (150-400); POLYS 95.4 %; RBC 3.05 mil/uL (4.50-6.00); RDW-CV 16.9 % (10.5-14.5); WBC 10.5 thou/uL (4.0-11.0)
[2021-03-01 02:44] LABS: CALCIUM 6.7 mg/dL (8.5-10.1); CREATININE 2.2 mg/dL (0.6-1.3); MAGNESIUM 1.8 mg/dL (1.8-2.4); PHOSPHORUS* 3.2 mg/dL (2.5-4.9)
[2021-03-01 02:45] LABS: ALBUMIN 2.3 g/dL (3.4-5.0); CALCIUM 6.8 mg/dL (8.5-10.1); CREATININE 2.2 mg/dL (0.6-1.3); TOTAL BILIRUBIN 0.5 mg/dL (<0.1-1.0)
[2021-03-01 03:03] LABS: POTASSIUM 2.8 mmol/L (3.5-5.1)
[2021-03-01 08:08] LABS: BE -1.1 mmol/L (-2 to +3); PCO2 34.8 mmHg (35.0-45.0); PO2 93.1 mmHg (75.0-100.0); pH 7.434 (7.340-7.450)
--- NOTE | 2021-03-01 15:24 | NUR ---
Spoke with Fara over the phone. Wifeis DPOA. Patient lives at home in a house (ranch style) with 1 entry step. lives with patient. Patient was independent with adls prior to admission. Patient is retired and able to drive. Patient uses 2l of O2 when SOB. Per , he does not use his O2 on a regular basis. Patient provided O2 within the last month due to his COPD. No prior hx of HH, SNF or rehab. No hx of services, dialysis or infusion therapy. PCP is Dr. Candida Chavez ([phone]). Per , she would like to meet with the tomorrow to setup a 3 way call with her sons who live out of state. Dr. ferguson and nurse updated. -Fara Merlos [phone] CM to continue to follow for safe dc planning CM to continue to follow for safe dc planning
--- NOTE | 2021-03-01 16:39 | NUR ---
ABLE TO WEAN LEVOPHED THIS SHIFT AND WEAN DOWN FENTANYL. VERSED GTT WEANED OFF AND PRECEDEX STARTED. PT WILL HAVE EGD IN THE AM. EDUCATION GIVEN TO SPOUSE AT BEDSIDE WHO THEN CONSENTED TO EGD. WILL CONTINUE TO ASSESS.
--- NOTE | 2021-03-01 19:09 | NUR ---
BEDSIDE REPORT GIVEN TO WILL RN.
[2021-03-02] VITALS (31 sets, daily range): BP systolic 102–131; BP diastolic 41–50
[2021-03-02 06:17] LABS: ABSOLUTE LYMPHOCYTES 0.2 thou/uL (0.8-5.3); ABSOLUTE MONOCYTES 0.5 thou/uL (0.0-1.2); ABSOLUTE NEUTROPHILS 16.9 thou/uL (1.6-8.1); BASOPHILS 0.1 %; HEMATOCRIT 27.4 % (42.0-52.0); LYMPHOCYTES 1.3 %; MCHC 32.8 g/dL (28.0-37.0); MCV 94.4 fL (80.0-100.0); MONOCYTES 2.9 %; MPV 8.9 fl. (7.2-11.1); NUCLEATED RBCS 0 /100WBC; PLATELET COUNT* 127 thou/uL (150-400); POLYS 95.7 %; RBC 2.91 mil/uL (4.50-6.00); RDW-CV 16.5 % (10.5-14.5); WBC 17.7 thou/uL (4.0-11.0)
[2021-03-02 06:25] LABS: CREATININE 1.2 mg/dL (0.6-1.3)
--- NOTE | 2021-03-02 09:05 | NUR ---
ICU Rounds: Patient intubated. Fi02 40%, Peep 5, sedation. IV Abx and steroids. Dr to talk to Fara at bedside this morning. She would like to have a 3 way call with the her sons since they live out of town and the family would like an overview of the the patients care to ensure they understand the plan of care. Dr ferguson. CM to continue to follow
--- NOTE | 2021-03-02 11:30 | CON ---
[address] [address] CONSULTATION Name: MAK ROSA Room: [address] IN .R.#: [id number] Admission: 02/27/21 Attend Phys: Sravan Prado Discharge: Date of : 53 Report #: [id number] THIS REPORT FOR: cc: Candida Chavez MD, Katrina MD Pervez,Michael FLORES ~ DOC #: [id number] Michael Mohamud MD DATE OF CONSULTATION: 02/28/2021 REQUESTING PHYSICIAN: Omi Larkin DO INDICATION FOR CONSULTATION: Ventilator management. HISTORY OF PRESENT ILLNESS: This 65-year-old gentleman, past medical history includes a history of oxygen dependent COPD. The patient is an active smoker. The patient has recently had CABG at an outside institution, was now admitted with intractable vomiting. He is reported to have brought up some black material while vomiting as well. His initial chest x-ray from yesterday shows small infiltrates at bilateral lung bases, right greater than left. There is considerable progression of these infiltrates and subsequent chest x-rays consistent with interval large aspiration. The patient currently is on the ventilator. He is on 100% FiO2 with 8 of PEEP. He is also oxygenating in the high 90s, but the pO2 on the last blood gas is 76. He is on low dose norepinephrine to maintain blood pressure. He is also in acute renal failure with a creatinine of 3.0 initially and now 2.5. The patient's WBC count has also dropped. He has had a significant metabolic acidosis. He does have IV fluids running. He has labored respirations with respiratory rate in the high 20s. The patient is on the ventilator and therefore is unable to provide a further history or review of systems. PAST MEDICAL HISTORY: Oxygen dependent COPD, coronary artery disease, recent CABG, I do not have any measure of his left ventricular ejection fraction available at this time, peripheral vascular disease, hyperlipidemia, hypertension, neuralgia, neuritis, benign prostatic hypertrophy, carotid endarterectomy. The previous creatinine from 2018 which is 1.0. I do not have a more recent creatinine before this admission available at this time. The patient is reported to be on oxygen prison for COPD. SOCIAL HISTORY: He is an active smoker, unable to quantify exactly at this time. Has been smoking for many years. Does use alcohol; however, there is no known history of heavy alcohol use. No known history of illegal drug use. MEDICATIONS: Current medication list in [facility] reviewed. Home medication list also in [facility] [place] [address] CONSULTATION Name: MAK ROSA Room: [address]#: [id number] Admission: 02/27/21 Attend Phys: Sravan Prado Discharge: Date of : 53 Report #: [id number] ALLERGIES: SEROQUEL. FAMILY HISTORY: No pertinent family history known at this time. PHYSICAL EXAMINATION: GENERAL: He is sedated with Versed and fentanyl drips. VITAL SIGNS: Has a pulse of 107, blood pressure of 90/60. He is on low dose norepinephrine. He is saturating 97% and is breathing in the high 20s with a tidal volume set at 500 with AC rate 22, 100% FiO2, 8 of PEEP. He is afebrile with a temperature of 36.8. HEENT: Head is normocephalic and atraumatic. Pupils are equal and reactive. There is an endotracheal tube in good position. NECK: Does not show raised JVP, asymmetry, mass or lymph nodes. CHEST: Symmetrical expansion on inspection and palpation. On auscultation, breath sounds are bilaterally equal, but diminished. I do not hear any added sounds. HEART: Regular. There is no murmur. ABDOMEN: Soft and nontender. LOWER EXTREMITIES: Show no edema, no calf tenderness. SKIN: Dry and intact. NEUROLOGIC: He does move all extremities bilaterally equally and spontaneously with no focal deficit identified. LABORATORY DATA: Discussion regarding chest x-rays as above. Arterial blood gases showed significant hypoxemia compared with the amount of oxygen he is on. He is also in acute renal failure and has a low WBC count as above. ASSESSMENT AND PLAN: 1. Acute hypoxemic respiratory failure. We will need to keep him sedated well with Versed and fentanyl. We will see if we are able to bring down FiO2, if not then I intend to increase PEEP as long as we are able to maintain blood pressure. The patient just had an arterial line placed and is having a central line placed at this time. 2. Aspiration pneumonia/pulmonary infiltrates. We will go ahead and jarquin culture. Agree with Katelinsyn. We will also start Zyvox. Considering the severity of his condition, I went ahead and ordered one dose of Levaquin as well. This should be in his system for the next 2 days based on his creatinine. At which time we can assess as to whether further fluoroquinolone therapy is indicated. 3. Chronic obstructive pulmonary disease exacerbation. Solu-Medrol and nebulized bronchodilators. I did cut back to Solu-Medrol dose. 4. Acute renal failure with metabolic acidosis. Continue IV fluids. We will need to watch his fluid status closely while he is on the IV fluids. I favor adding some bicarbonate to the IV fluids. Nephrology service has been [facility] [address] [place] [address] CONSULTATION Name: MAK ROSA Room: [address] IN ..#: [id number] Admission: 02/27/21 Attend Phys: Sravan Prado Discharge: Date of : 53 Report #: [id number] consulted. If the nephrology service is not available to see the patient soon, then I will go ahead and start a bicarbonate drip in the interim 5. Coronary artery disease, status post recent coronary artery bypass graft. An echocardiogram is pending at this time. 6. Hyperglycemia, insulin sliding scale. 7. Hypotension/septic shock. He is on norepinephrine. 8. Intractable vomiting/possible upper gastrointestinal bleeding. He is on Protonix. Gastroenterology service is on the case. 9. Deep venous thrombosis prophylaxis. He is on subcutaneous heparin. We will watch hemoglobin and hematocrit closely. The patient is critically ill at this time. Total time spent providing critical care to this patient today exceeds 50 minutes. Michael Mohamud MD AP/SUM <ELECTRONICALLY SIGNED> By: Michael Mohamud MD 03/02/21 1130 1047 2026Adestiny Mohamud MD /nt
--- NOTE | 2021-03-02 14:57 | NUR ---
I ASSUMED CARE OF THE PATIENT AT 0700. HE IS LIGHTLY SEDATED AND INTUBATED, BUT NO RESTRAINTS. BED IS IN THE LOW LOCKED POSITION AND CALL LIGHT IS IN REACH. HOURLY ROUNDING IS COMPLETED AND PATIENT NEEDS ARE MET. PAIN IS NOT APPARENT. BLOOD SUGAR IS CHECKED EVERY 6 HOURS AND IS IN NORMAL RANGE. THERE IS VIRTUALLY NO OUTPUT FROM THE OG TUBE. ORAL CARE IS COMPLETED EVERY 2 HOURS WELL REPOSITIONING. HIS CABG INCISION FROM LAST MONTH IS CATA AND HE IS STILL WEARING HIS BINDER. HERRERA IS IN PLACE. HE HAS NO NUTRITION CURRENTLY. WE ARE TO TITRATE BP MEDS TO KEEP SYSTOLIC >95 AND MAP OF >65. HAS SIGNED THE EGD CONSENT AND DR LUNDBERG JUST ARRIVED TO DO PROCEDURE AT THE BEDSIDE. WILL CONTINUE TO MONITOR. REPORT GIVEN TO IVANA TAYLOR.
--- NOTE | 2021-03-02 20:45 | NUR ---
APPROX 2230 PT EXTUBATED SELF, SEDATION TURNED OFF AND PROVIDER CALLED. ORDERS TO MONITOR AND REMAIN NPO.
[2021-03-03] VITALS (40 sets, daily range): BP systolic 122–180; BP diastolic 49–98
[2021-03-03 05:48] LABS: ABSOLUTE LYMPHOCYTES 0.3 thou/uL (0.8-5.3); ABSOLUTE MONOCYTES 0.6 thou/uL (0.0-1.2); ABSOLUTE NEUTROPHILS 21.6 thou/uL (1.6-8.1); BASOPHILS 0.1 %; HEMATOCRIT 29.6 % (42.0-52.0); HEMOGLOBIN 9.5 gm/dL (14.0-18.0); LYMPHOCYTES 1.5 %; MCH 30.1 pg (26.0-34.0); MCHC 32.2 g/dL (28.0-37.0); MCV 93.7 fL (80.0-100.0); MONOCYTES 2.9 %; MPV 8.8 fl. (7.2-11.1); NUCLEATED RBCS 0 /100WBC; PLATELET COUNT* 140 thou/uL (150-400); POLYS 95.5 %; RBC 3.16 mil/uL (4.50-6.00); RDW-CV 16.6 % (10.5-14.5); WBC 22.6 thou/uL (4.0-11.0)
[2021-03-03 05:51] LABS: CALCIUM 7.7 mg/dL (8.5-10.1); CREATININE 0.9 mg/dL (0.6-1.3); MAGNESIUM 2.1 mg/dL (1.8-2.4); POTASSIUM 3.5 mmol/L (3.5-5.1); TOTAL BILIRUBIN 0.4 mg/dL (<0.1-1.0)
[2021-03-03 06:09] LABS: % SATURATION 22 % (20-39); IRON 28 ug/dL (50-175)
[2021-03-03 06:20] LABS: BE -0.5 mmol/L (-2 to +3); PCO2 35.7 mmHg (35.0-45.0); pH 7.433 (7.340-7.450)
[2021-03-03 06:21] LABS: PO2 59.2 mmHg (75.0-100.0)
--- NOTE | 2021-03-03 12:29 | NUR ---
ICU rounds: Pt self extubated last night, doing ok. Continue IVAbx. Therapies to see. On 6l o2. Alert, but a little forgetful. Art line out. Off levo. Gastric tube out, still has some ileius, GI following. Stage 1 wound on coccyx.
--- NOTE | 2021-03-03 17:23 | NUR ---
PATIENT PROGRESSING TOWARDS GOALS. REMAINS OFF OF VENT AND ON HIGH FLOW CANNULA AT 7LPM. COUGH PRODUCTIVE AND SPUTUM SENT. HAS C/O NAUSEA INTERMITTANTLY. NO EMESIS. REMAINS NPO. SUPPOSITORY GIVEN THIS MORNING. PER DR GEE, MAY BE ABLE TO EAT TOMORROW. WOUND CARE CHARTED. POTASSIUM REPLACEMENT ONGOING. SPOUSE PRESENT MOST OF THE DAY.
[2021-03-04] VITALS (36 sets, daily range): BP systolic 121–166; BP diastolic 58–79
--- NOTE | 2021-03-04 00:55 | NUR ---
PT NOTED TO HAVE INCREASED WOB. PT PLACED ON OPTIFLO 40LPM, 40%. PT STATED IS MORE COMFORTABLE. ENCOURAGED REST. PT NURSE AT BEDSIDE. WILL MONITOR CLOSELY.
[2021-03-04 06:22] LABS: HEMATOCRIT 33.3 % (42.0-52.0); HEMOGLOBIN 10.9 gm/dL (14.0-18.0); MCH 30.5 pg (26.0-34.0); MCHC 32.8 g/dL (28.0-37.0); MCV 92.9 fL (80.0-100.0); MPV 8.9 fl. (7.2-11.1); NUCLEATED RBCS 0 /100WBC; PLATELET COUNT* 167 thou/uL (150-400); RBC 3.59 mil/uL (4.50-6.00); RDW-CV 16.7 % (10.5-14.5); WBC 19.7 thou/uL (4.0-11.0)
[2021-03-04 06:35] LABS: ALBUMIN 1.9 g/dL (3.4-5.0); CALCIUM 7.7 mg/dL (8.5-10.1); CREATININE 0.9 mg/dL (0.6-1.3); POTASSIUM 3.8 mmol/L (3.5-5.1); TOTAL BILIRUBIN 0.5 mg/dL (<0.1-1.0); TOTAL PROTEIN 5.1 g/dL (6.4-8.2)
[2021-03-04 06:36] LABS: PREALBUMIN 14.9 mg/dL (18.0-35.7)
[2021-03-04 07:46] LABS: ABSOLUTE MONOCYTES 0.6 thou/uL (0.0-1.2); ABSOLUTE NEUTROPHILS 18.1 thou/uL (1.6-8.1)
[2021-03-04 07:47] LABS: PLATELET ESTIMATE ADEQUATE; TOXIC GRANULATION 1+
[2021-03-04 12:08] LABS: PCO2 41.8 mmHg (35.0-45.0); pH 7.476 (7.340-7.450)
[2021-03-04 12:10] LABS: PO2 35.3 mmHg (75.0-100.0)
[2021-03-04 15:20] LABS: BE 4.5 mmol/L (-2 to +3); PCO2 36.1 mmHg (35.0-45.0); pH 7.502 (7.340-7.450)
[2021-03-05] VITALS (45 sets, daily range): BP systolic 127–163; BP diastolic 62–87
[2021-03-05 04:33] LABS: ABSOLUTE LYMPHOCYTES 0.6 thou/uL (0.8-5.3); ABSOLUTE MONOCYTES 0.5 thou/uL (0.0-1.2); ABSOLUTE NEUTROPHILS 13.8 thou/uL (1.6-8.1); BASOPHILS 0.1 %; MCH 30.8 pg (26.0-34.0); MCHC 33.4 g/dL (28.0-37.0); MCV 92.1 fL (80.0-100.0); MONOCYTES 3.3 %; MPV 8.6 fl. (7.2-11.1); NUCLEATED RBCS 0 /100WBC; PLATELET COUNT* 170 thou/uL (150-400); POLYS 92.6 %; RBC 3.58 mil/uL (4.50-6.00); RDW-CV 16.3 % (10.5-14.5); WBC 14.9 thou/uL (4.0-11.0)
[2021-03-05 04:37] LABS: ALBUMIN 1.8 g/dL (3.4-5.0); CALCIUM 7.6 mg/dL (8.5-10.1); CREATININE 0.9 mg/dL (0.6-1.3); MAGNESIUM 1.7 mg/dL (1.8-2.4); POTASSIUM 3.5 mmol/L (3.5-5.1); TOTAL BILIRUBIN 0.5 mg/dL (<0.1-1.0)
--- NOTE | 2021-03-05 19:34 | NUR ---
ALL ASSESSMENTS COMPLETED CHARTED. HIGH FALL RISK PRECAUTIONS IN PLACE FOR PATIENT SAFETY. CARDIAC MONITORING IN PLACE. UNABLE TO PLACE NG TUBE TODAY. STILL VOMITING BILE WITH STOMACH DISTENTION.
[2021-03-06] VITALS (47 sets, daily range): BP systolic 90–204; BP diastolic 51–161
[2021-03-06 05:52] LABS: HEMATOCRIT 31.8 % (42.0-52.0); HEMOGLOBIN 10.6 gm/dL (14.0-18.0); MCH 30.8 pg (26.0-34.0); MCHC 33.4 g/dL (28.0-37.0); MCV 92.2 fL (80.0-100.0); MPV 7.5 fl. (7.2-11.1); RBC 3.45 mil/uL (4.50-6.00); RDW-CV 16.1 % (10.5-14.5); WBC 17.2 thou/uL (4.0-11.0)
[2021-03-06 06:06] LABS: CALCIUM 7.7 mg/dL (8.5-10.1); CREATININE 0.7 mg/dL (0.6-1.3); MAGNESIUM 1.9 mg/dL (1.8-2.4); PHOSPHORUS* 2.6 mg/dL (2.5-4.9); POTASSIUM 3.2 mmol/L (3.5-5.1)
--- NOTE | 2021-03-06 12:29 | NUR ---
ICU rounds: 70% heated hiflo. Patient self-extubated 03/02/21 and has not been reintubated. O2 needs have increased so the need for reintubation has been discussed by the Dr with the family. NGT in place. Patient may need surgery for Bowel Obstruction. If surgery is needed, patient will likely need to be intubated (trach to wean?) and possible LTAC at dc. If no surgery, Dr wants to send patient to rehab. Will need to wait to see plan of care for surgery to discuss next steps with family. Patient currently sitting up and watching tv. at bedside. CM to continue to follow for safe dc planning
[2021-03-06 18:51] LABS: CALCIUM 7.8 mg/dL (8.5-10.1); CREATININE 0.8 mg/dL (0.6-1.3)
[2021-03-06 18:59] LABS: POTASSIUM 6.2 mmol/L (3.5-5.1)
--- NOTE | 2021-03-06 19:24 | NUR ---
LAB CALLED WITH 1800 K+ ABOVE 6.0, THIS RN REDREW THIS LAB TO ENSURE THAT IV FLUIDS CONTAINING K+ HAD NOT IMPACTED K+ LEVEL.
[2021-03-06 19:56] LABS: CREATININE 0.8 mg/dL (0.6-1.3)
[2021-03-06 19:57] LABS: POTASSIUM 4.6 mmol/L (3.5-5.1)
[2021-03-07] VITALS (47 sets, daily range): BP systolic 107–153; BP diastolic 40–78
[2021-03-07 04:10] LABS: ABSOLUTE BASOPHILS 0.2 thou/uL (0.0-0.2); ABSOLUTE LYMPHOCYTES 0.3 thou/uL (0.8-5.3); ABSOLUTE MONOCYTES 0.4 thou/uL (0.0-1.2); ABSOLUTE NEUTROPHILS 10.2 thou/uL (1.6-8.1); BASOPHILS 1.5 %; HEMATOCRIT 29.1 % (42.0-52.0); HEMOGLOBIN 9.8 gm/dL (14.0-18.0); LYMPHOCYTES 2.8 %; MCH 31.2 pg (26.0-34.0); MCHC 33.5 g/dL (28.0-37.0); MONOCYTES 3.4 %; MPV 7.9 fl. (7.2-11.1); NUCLEATED RBCS 0 /100WBC; PLATELET COUNT* 168 thou/uL (150-400); POLYS 92.3 %; RBC 3.13 mil/uL (4.50-6.00); RDW-CV 15.6 % (10.5-14.5); WBC 11.1 thou/uL (4.0-11.0)
--- NOTE | 2021-03-07 04:35 | NUR ---
ASSUMED CARE AT 1900H, ON HEATED HIFLOW AT 70% AND TITRATED DOWN. SEEN ON BED AWAKE AND PLEASANTLY CONFUSED. RE-ORIENT PT. HE ANSWERS MOST OF MY ORIENTATION QUESTIONS, 'I DON'T KNOW'. PT DID NOT SLEEP IN MY SHIFT AND HE IS ASKING FOR PILL TO HELP HIM SLEEP TONIGHT. PULMO CALLED WITH ORDERS CARRIED OUT. NO DISTRESS AND NO FEVER NOTED. CONTINUE MONITORING AND TOWARDS GOALS.
[2021-03-07 04:57] LABS: ALBUMIN 2.3 g/dL (3.4-5.0); CALCIUM 8.1 mg/dL (8.5-10.1); POTASSIUM 3.8 mmol/L (3.5-5.1); TOTAL BILIRUBIN 0.5 mg/dL (<0.1-1.0); TOTAL PROTEIN 5.2 g/dL (6.4-8.2)
--- NOTE | 2021-03-07 16:24 | NUR ---
Case and plan of care reviewed with MD. on HF 45L NG to LIS r/t SBO. CM will continue to follow for DC planning needs
[2021-03-07 16:57] LABS: CALCIUM 8.3 mg/dL (8.5-10.1); CREATININE 0.8 mg/dL (0.6-1.3)
[2021-03-08] VITALS (88 sets, daily range): BP systolic 79–171; BP diastolic 31–64
[2021-03-08 04:39] LABS: BE 7.1 mmol/L (-2 to +3); PCO2 44.1 mmHg (35.0-45.0); PO2 63.7 mmHg (75.0-100.0); pH 7.472 (7.340-7.450)
[2021-03-08 05:22] LABS: HEMATOCRIT 28.3 % (42.0-52.0); HEMOGLOBIN 9.5 gm/dL (14.0-18.0); MCH 30.8 pg (26.0-34.0); MCHC 33.4 g/dL (28.0-37.0); MCV 92.2 fL (80.0-100.0); MPV 7.8 fl. (7.2-11.1); NUCLEATED RBCS 0 /100WBC; PLATELET COUNT* 214 thou/uL (150-400); RBC 3.07 mil/uL (4.50-6.00); WBC 21.4 thou/uL (4.0-11.0)
[2021-03-08 05:41] LABS: ALBUMIN 2.7 g/dL (3.4-5.0); CALCIUM 8.3 mg/dL (8.5-10.1); CREATININE 0.9 mg/dL (0.6-1.3); MAGNESIUM 1.9 mg/dL (1.8-2.4); POTASSIUM 3.4 mmol/L (3.5-5.1); TOTAL BILIRUBIN 0.6 mg/dL (<0.1-1.0); TOTAL PROTEIN 5.2 g/dL (6.4-8.2)
--- NOTE | 2021-03-08 05:56 | NUR ---
0245 PT BECAME TACHYCARDIC HR 130-140, BREATHING LABORED, TACHYPNEA RESP 35-40. INCREASED O2 DEMAND TO 90% O2 AND 55L ON OPTIFLOW. DR. RIDER CALLED. VO TO INTUBATE. 0300 ED PHYSICIAN TO BEDSIDE. 0312 20MG ETOMIDATE, 0313 100MG SUCCS, 0314 7.5 ETT PLACED 25 AT TEETH. GOOD COLOR CHANGED. TUBE SECURED, CHEST X-RAY ORDERED AND FOLLOW UP ABG ORDERED.
[2021-03-08 06:21] LABS: ABSOLUTE LYMPHOCYTES 1.7 thou/uL (0.8-5.3); ABSOLUTE NEUTROPHILS 19.7 thou/uL (1.6-8.1); ANISOCYTOSIS 1+; PLATELET ESTIMATE ADEQUATE; POIKILOCYTOSIS 1+
--- NOTE | 2021-03-08 08:14 | NUR ---
CONTACT DR. RIDER INSTRUCTED TO START PT ON NEOSYNEPHRINE GTT AND OBTAIN ARTERIAL LINE. UPDATE SPOUSE AT BEDSIDE AND WILL CONTINUE TO ASSESS.
--- NOTE | 2021-03-08 10:10 | NUR ---
PT HTIS AM WAS OVER BREATHING THE VENTILATOR AND TACHYCARDIC. CONTACT DR. CERVANTES AND OBTAIN ORDER FOR INCREASED SEDATION AND FLUID BOLUS WITH ALBUMIN. PT HEART RATE STILL IN THE 130S AND DR. OLIVA INSTRUCT TO GIVE 1 LITER BOLUS.
--- NOTE | 2021-03-08 13:33 | NUR ---
INSTRUCTED BY CARDIOLOGY TO HOLD OFF ONLOVENOX UNTIL RESULTS OF ECHO ARE BACK.
--- NOTE | 2021-03-08 14:22 | 2DMMODE ---
[place] [address] 2 D/M-MODE ECHOCARDIOGRAM Name: MAK ROSA Room: [address] IN .R.#: [id number] Admission: 02/27/21 Attend Phys: Omi Larkin Discharge: Date of : 53 Date of Service: 03/08/21 1422 Report #: [id number] THIS REPORT FOR: cc: Candida Chavez MD, Katrina MD Holkins, John M. MD [facility] ~ APPROVED REPORT Study performed: 03/08/2021 13:39:09 EXAM: Limited 2D, Doppler, and color-flow Echocardiogram Patient Location: Bedside BSA: 1.64 BP: 164/46 mmHg Other Information Study Quality: Technically Limited Technically limited study due to inability to position patient. Indications Myocardial Infarction 2D Dimensions IVSd: 9.42 (7-11mm) LVOT Diam: 19.91 (18-24mm) LVDd: 46.48 mm PWd: 6.81 (7-11mm) Ascending Ao: 34.63 (22-36mm) LVDs: 24.73 (25-40mm) Aortic Root: 25.57 mm Tricuspid Valve RAP Estimate: 5.00 mmHg TR Peak Gr.: 23.58 mmHg RVSP: 28.58 mmHg PA Pressure: 28.58 mmHg Left Ventricle The left ventricle is normal size. Subtle inferobasilar hypokinesis is noted Mild concentric left ventricular hypertrophy. Left ventricular systolic function is normal. The left ventricular ejection fraction is within the normal range. LVEF is 60-65%. Right Ventricle The right ventricle is normal size. The right ventricular systolic [facility] [address] [place] [address] 2 D/M-MODE ECHOCARDIOGRAM Name: MAK ROSA Room: [address] IN [facility]#: [id number] Admission: 02/27/21 Attend Phys: Omi Larikn Discharge: Date of : 53 Date of Service: 03/08/21 1422 Report #: [id number] function is normal. Aortic Valve Moderate aortic valve sclerosis. Mitral Valve The mitral valve is normal in structure. Mild mitral regurgitation. Tricuspid Valve The tricuspid valve is normal in structure. Mild tricuspid regurgitation. Pulmonic Valve The pulmonary valve is normal in structure. There is no pulmonic valvular regurgitation. Great Vessels The aortic root is normal in size. IVC is normal in size and collapses >50% with inspiration. Pericardium There is no pericardial effusion. <Conclusion> The left ventricle is normal size. Mild concentric left ventricular hypertrophy. Left ventricular systolic function is normal. The left ventricular ejection fraction is within the normal range. LVEF is 60-65%. The right ventricle is normal size. The right ventricular systolic function is normal. Moderate aortic valve sclerosis. The mitral valve is normal in structure. Mild mitral regurgitation. The tricuspid valve is normal in structure. Mild tricuspid regurgitation. IVC is normal in size and collapses >50% with inspiration. There is no pericardial effusion. Subtle inferobasilar hypokinesis is noted <ELECTRONICALLY SIGNED> By: Luther Wang MD, [facility] 03/08/21 [phone] Luther Wang MD, FACC /INF
--- NOTE | 2021-03-08 14:52 | EKG ---
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: : 1955 Requested By: Michael Mohamud Order Number: [id number] Clarita MD: Luther Wang Measurements Intervals [place] Rate: 137 P: 115 [place]: 115 QRS: 79 QRSD: 90 T: 123 QT: 412 QTc: 623 Interpretive Statements Sinus tachycardia Consider right atrial enlargement Prominent inferior and anterolateral ST segment elevation; acute injury is suggested Since the prior tracing, the heart rate has increased and the ST-T changes suggesting acute inferolateral injury have developed Electronically Signed On 03-08-2021 14:52:08 CDT by Luther Wang [email or web address] <ELECTRONICALLY SIGNED> By: Luther Wang MD, [facility] 03/08/21 1452 1252 1252 Luther Wang MD, FAC /EPI
[2021-03-08 16:50] LABS: PO2 93.3 mmHg (75.0-100.0); pH 7.444 (7.340-7.450)
[2021-03-08 16:54] LABS: PCO2 51.3 mmHg (35.0-45.0)
[2021-03-08 19:12] LABS: CALCIUM 8.7 mg/dL (8.5-10.1); MAGNESIUM 2.6 mg/dL (1.8-2.4)
--- NOTE | 2021-03-08 19:25 | NUR ---
SPOUSE SPOKE WITH TROMPER TARA AND EXPRESSED THAT SHE DID NOT WANT ANY CHEST COMPRESSION SHOULD THE PT'S HEART STOP. INFORM DR. OLIVA THIS SHIFT OF FAMILY'S WISH. CONTINUE FREQUENT SUCTIONING AND TURNING PT. NGT REMAINS TO LIS DRAINING GREENISH FLUID. GAVE BEDSIDE REPORT TO ORLY HEATH AND INFORMED THAT AT THE BEGINING OF THE SHIFT PT WAS OVERIDING VENTILATOR AND RESTLESS.TALKED TO DR. RIDER AND INSTRUCTED TO INCREASE SEDATION SO THAT RASS SCORE IS - 2. TURNED OFF SEDATION AT THE END OF SHIFT TO SEE HOW MUCH PT WILL WAKE UP. INFORM ORLY HEATH OF EXTRA BAG OF VERSED AND PROPOFOL THAT CAN BE RESTARTED FOR SEDATION.
[2021-03-08 19:28] LABS: POTASSIUM 4.2 mmol/L (3.5-5.1)
--- NOTE | 2021-03-08 20:00 | NUR ---
SPOKE WITH PATIENT'S THIS AFTERNOON ABOUT THE PATIENT'S CURRENT STATUS. SHOSHANA () STATES THAT IF SOMETHING WAS TO HAPPEN AND THE PATIENT'S HEART WAS TO STOP BEATING THAT SHE DID NOT WANT CHEST COMPRESSIONS STARTED. SHE DOES WANT AGGRESSIVE TREATMENT OTHERWISE THOUGH. DR SU UPDATED. NO FURTHER CONCERNS AT THIS TIME. WILL CONTINUE TO MONITOR AND CARE PER PLAN OF CARE.
[2021-03-09] VITALS (43 sets, daily range): BP systolic 84–200; BP diastolic 32–66
[2021-03-09 03:49] LABS: ABSOLUTE LYMPHOCYTES 0.2 thou/uL (0.8-5.3); ABSOLUTE MONOCYTES 0.1 thou/uL (0.0-1.2); ABSOLUTE NEUTROPHILS 8.8 thou/uL (1.6-8.1); BASOPHILS 0.1 %; HEMATOCRIT 23.6 % (42.0-52.0); LYMPHOCYTES 1.9 %; MCH 31.7 pg (26.0-34.0); MCHC 34.1 g/dL (28.0-37.0); MONOCYTES 1.2 %; MPV 8.2 fl. (7.2-11.1); NUCLEATED RBCS 0 /100WBC; PLATELET COUNT* 177 thou/uL (150-400); POLYS 96.8 %; RBC 2.53 mil/uL (4.50-6.00); RDW-CV 16.5 % (10.5-14.5); WBC 9.1 thou/uL (4.0-11.0)
[2021-03-09 04:04] LABS: ALBUMIN 2.7 g/dL (3.4-5.0); CALCIUM 8.6 mg/dL (8.5-10.1); MAGNESIUM 2.5 mg/dL (1.8-2.4); POTASSIUM 3.7 mmol/L (3.5-5.1); TOTAL BILIRUBIN 0.4 mg/dL (<0.1-1.0); TOTAL PROTEIN 5.4 g/dL (6.4-8.2)
[2021-03-09 08:21] LABS: PCO2 49.7 mmHg (35.0-45.0); PO2 91.8 mmHg (75.0-100.0); pH 7.487 (7.340-7.450)
--- NOTE | 2021-03-09 12:03 | NUR ---
ICU rounds: Intubated. Wounds. Stemi yesterday, cards following. Art line. Likely will need LTAC at dc per
--- NOTE | 2021-03-09 13:25 | EKG ---
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: : 1955 Requested By: Sera Cabello Order Number: [id number] Reading MD: Justin Bravo Measurements Intervals [place] Rate: 97 P: 65 [place]: 139 QRS: 75 QRSD: 101 T: -77 QT: 389 QTc: 494 Interpretive Statements Sinus rhythm Repol abnrm suggests ischemia, anterior leads Compared to ECG 03/08/2021 12:52:54 Early repolarization now present Possible ischemia now present Sinus tachycardia no longer present ST (T wave) deviation no longer present Myocardial infarct finding no longer present Electronically Signed On 03-09-2021 13:25:10 CDT by Justin Bravo [email or web address] <ELECTRONICALLY SIGNED> By: Justin Bravo MD, [facility] 03/09/21 1325 0956 Justin Bravo MD, [facility] /EPI
--- NOTE | 2021-03-09 15:34 | NUR ---
UNABLE TO OBTAIN CHEAST/ABD DUE TO BUSTY ICU AND RT IS UNABLE TO GO WITH AT THIS TIME. DR. OLIVA OK FOR CT TO BE PERFORMED DURING SET UP MECHANIC.
--- NOTE | 2021-03-09 18:49 | NUR ---
BEDSIDE REPORT GIVEN TO NIGHT RN.
[2021-03-10] VITALS (24 sets, daily range): BP systolic 98–283; BP diastolic 39–268
[2021-03-10 04:21] LABS: ABSOLUTE LYMPHOCYTES 0.2 thou/uL (0.8-5.3); ABSOLUTE MONOCYTES 0.5 thou/uL (0.0-1.2); HEMATOCRIT 24.7 % (42.0-52.0); HEMOGLOBIN 8.3 gm/dL (14.0-18.0); LYMPHOCYTES 1.9 %; MCH 31.5 pg (26.0-34.0); MCHC 33.7 g/dL (28.0-37.0); MCV 93.5 fL (80.0-100.0); MONOCYTES 4.5 %; NUCLEATED RBCS 0 /100WBC; PLATELET COUNT* 237 thou/uL (150-400); POLYS 93.6 %; RBC 2.64 mil/uL (4.50-6.00); RDW-CV 16.3 % (10.5-14.5); WBC 10.7 thou/uL (4.0-11.0)
[2021-03-10 04:48] LABS: ALBUMIN 2.5 g/dL (3.4-5.0); CALCIUM 8.5 mg/dL (8.5-10.1); CREATININE 0.7 mg/dL (0.6-1.3); POTASSIUM 3.8 mmol/L (3.5-5.1); TOTAL BILIRUBIN 0.2 mg/dL (<0.1-1.0); TOTAL PROTEIN 5.3 g/dL (6.4-8.2)
--- NOTE | 2021-03-10 06:18 | NUR ---
ASSUMED PATIENT CARE AT 1900. PATIENT SEDATED AND INTUBATED. ABLE TO NOD YES OR NO TO SIMPLE QUESTIONS. ART LINE IN PLACE. CENTRAL LINE PATENT. NO SIGNS OF PAIN OR DISTRESS NOTED. RN ASSESSMENTS COMPLETED DOCUMENTED.
--- NOTE | 2021-03-10 09:20 | NUR ---
PER CARE TEAM: PT HAD STEMI WITHIN THE LAST 48HRS. VENT- OXYGEN NEEDS HAD TO BE INCREASED. PT IS ABLE TO FOLLOW SIMPLE COMMANDS.
--- NOTE | 2021-03-10 10:20 | NUR ---
0730 ASSUMED CARE OF PATIENT. PLEASE SEE DOCUMENTED ASSESSMENT. PT IS RESTLESS AND REQUIRING INCREASING OXYGEN FLOW. HAS BEEN SUCTIONED AND SEDATION INCREASED. CHEST FILM DONE. CARDIOLOGY HERE AND ORDERS NOTED.
--- NOTE | 2021-03-10 16:13 | 2DMMODE ---
[place] [address] 2 D/M-MODE ECHOCARDIOGRAM Name: MAK ROSA Room: [address] IN .R.#: [id number] Admission: 02/27/21 Attend Phys: Omi Larkin Discharge: Date of : 53 Date of Service: 03/10/21 1613 Report #: [id number] THIS REPORT FOR: cc: Candida Chavez MD, Katrina MD Holkins, John M. MD [facility] ~ APPROVED REPORT Study performed: 03/10/2021 15:13:41 EXAM: Limited 2D, Doppler, and color-flow Echocardiogram BSA: 1.58 HR: 89 bpm BP: 102/44 mmHg Other Information Study Quality: Good Indications Pulmonary Hypertension Tricuspid Valve RAP Estimate: 10.00 mmHg TR Peak Gr.: 34.23 mmHg RVSP: 44.23 mmHg PA Pressure: 44.23 mmHg Left Ventricle The left ventricle is normal size. Mild concentric left ventricular hypertrophy. The left ventricular systolic function is normal. The left ventricular ejection fraction is within the normal range. LVEF is 60%. Right Ventricle The right ventricle is normal size. The right ventricular systolic function is normal. Aortic Valve Mild aortic valve sclerosis. Tricuspid Valve The tricuspid valve is normal in structure. Mild tricuspid regurgitation. PA systolic pressures estimated at 35 to 40 [place] [address] 2 D/M-MODE ECHOCARDIOGRAM Name: MAK ROSA Room: [address] IN .R.#: [id number] Admission: 02/27/21 Attend Phys: Omi Larkin Discharge: Date of : 53 Date of Service: 03/10/211612 Report #: [id number] Great Vessels IVC is normal in size and collapses <50% with inspiration. <Conclusion> LVEF is 60%. The right ventricle is normal size. The right ventricular systolic function is normal. Mild aortic valve sclerosis. The tricuspid valve is normal in structure. Mild tricuspid regurgitation. PA systolic pressures estimated at 35 to 40 mmHg IVC is normal in size and collapses <50% with inspiration. <ELECTRONICALLY SIGNED> By: Luther Wang MD, FACC 03/10/211612 12 12 Luther Wang MD, FACC /INF
--- NOTE | 2021-03-10 18:15 | NUR ---
PATIENT IS NOT PROGRESSING TOWRDS GOALS. UNABLE TO MAINTAIN OXYGEN SATURATIONS FROM ONSET OF SHIFT. SEDATION ADJUSTED BUT PATIENT REMAINS ON 100% FIO2. OFF OF PRESSORS. STARTED ON METOPROLOL TODAY. HAS HAD ONE BOWEL MOVEMENT. SPOUSE VISITED AND UPDATED ON PT STATUS.
[2021-03-11] VITALS (27 sets, daily range): BP systolic 97–150; BP diastolic 36–52
[2021-03-11 05:16] LABS: ABSOLUTE LYMPHOCYTES 0.2 thou/uL (0.8-5.3); ABSOLUTE MONOCYTES 0.4 thou/uL (0.0-1.2); ABSOLUTE NEUTROPHILS 9.9 thou/uL (1.6-8.1); HEMOGLOBIN 8.1 gm/dL (14.0-18.0); LYMPHOCYTES 1.6 %; MCH 31.7 pg (26.0-34.0); MCHC 33.7 g/dL (28.0-37.0); MONOCYTES 4.1 %; MPV 7.8 fl. (7.2-11.1); NUCLEATED RBCS 0 /100WBC; PLATELET COUNT* 270 thou/uL (150-400); POLYS 94.3 %; RBC 2.55 mil/uL (4.50-6.00); RDW-CV 16.1 % (10.5-14.5); WBC 10.5 thou/uL (4.0-11.0)
[2021-03-11 05:27] LABS: ALBUMIN 2.6 g/dL (3.4-5.0); CALCIUM 8.8 mg/dL (8.5-10.1); CREATININE 0.6 mg/dL (0.6-1.3); POTASSIUM 4.4 mmol/L (3.5-5.1); TOTAL BILIRUBIN 0.2 mg/dL (<0.1-1.0); TOTAL PROTEIN 5.2 g/dL (6.4-8.2)
[2021-03-11 05:56] LABS: PHOSPHORUS* 2.7 mg/dL (2.5-4.9)
[2021-03-11 07:04] LABS: BE 6.8 mmol/L (-2 to +3); pH 7.408 (7.340-7.450)
[2021-03-11 07:06] LABS: PCO2 52.5 mmHg (35.0-45.0); PO2 220.8 mmHg (75.0-100.0)
--- NOTE | 2021-03-11 08:44 | NUR ---
PT PROGRESSING TOWARDS GOAL; PT WITH IMPROVEMENT IN LUNG STATUS; PT ABGS IMPROVED PLANS TO TITRATE FIO2 TODAY; PT COMPLETE BED BATH, ORAL CARE AND REPOSITION EVERY 2 HOURS; CARDIAC TRACING SR RATE 80'S; SEE ASSESSMENT FOR DETAILS; REPORT TO IVANA PARRA; ASSUMED CARE.,
--- NOTE | 2021-03-11 09:07 | CON ---
[address] [address] CONSULTATION Name: MAK ROSA Room: [address] IN [facility]#: [id number] Admission: 02/27/21 Attend Phys: Sravan Prado Discharge: Date of : 53 Report #: [id number] THIS REPORT FOR: cc: Candida Chavez MD, Katrina MD Arakelov, Alexandr V. MD ~ DOC #: [id number] Kike Mcqueen MD REQUESTING PHYSICIAN: Dr. Lakrin. REASON FOR CONSULTATION: Acute kidney injury. Consultation done by me today, 03/01/2021. HISTORY OF PRESENT ILLNESS: The patient is a 65-year-old white male with medical history significant for severe peripheral vascular disease, coronary artery disease status post bypass graft surgery on 01/27 at [facility], history of tobaccoism, COPD, presents to the hospital with complaints of nausea, vomiting, and abdominal pain. He was admitted to the hospital with a diagnosis of a possible bowel obstruction and was seen by GI doctor. OG was placed, 2200 mL of fluid was drained, he started feeling better. His creatinine initially was 3.0 and today it is down to 2.2. PAST MEDICAL HISTORY: As I mentioned earlier. SOCIAL HISTORY: Positive for tobaccoism. FAMILY HISTORY: Negative for renal disease. REVIEW OF SYSTEMS: Unobtainable now because he is intubated and sedated. PHYSICAL EXAMINATION: GENERAL: He is intubated and sedated. HEENT: Pupils are round. CHEST: With decreased air movement, but it looks like a barrel ____ chest due to smoking. CARDIOVASCULAR: No rub. Regular rate. ABDOMEN: Soft. LOWER EXTREMITIES: No edema. ASSESSMENT: 1. Acute kidney injury due to bowel obstruction. Renal functions are improving. 2. Acute respiratory failure[place] [address] CONSULTATION Name: MAK ROSA Room: [address]#: [id number] Admission: 02/27/21 Attend Phys: Sravan Prado Discharge: Date of : 53 Report #: [id number] 3. COPD. 3. Bowel obstruction is improving. 4. Coronary artery disease, status post recent bypass graft surgery. 5. Leukopenia. 6. Anemia. 7. Pneumonia. PLAN: Continue gentle hydration. He is on D5 half NS at 100 mL an hour. Keep the Porter in. Follow his labs. Hopefully, he will be able to extubate soon. Discussed with his , advised to stop smoking. MD BETTY Rodriguez/JASMIN/ANGELICA <ELECTRONICALLY SIGNED> By: Kike Mcqueen MD 03/11/21 [phone] Mcqueen MD /genia
[2021-03-12] VITALS (24 sets, daily range): BP systolic 99–150; BP diastolic 36–47
[2021-03-12 05:05] LABS: ABSOLUTE LYMPHOCYTES 0.1 thou/uL (0.8-5.3); ABSOLUTE MONOCYTES 0.3 thou/uL (0.0-1.2); ABSOLUTE NEUTROPHILS 9.6 thou/uL (1.6-8.1); BASOPHILS 0.3 %; HEMATOCRIT 21.4 % (42.0-52.0); HEMOGLOBIN 7.1 gm/dL (14.0-18.0); LYMPHOCYTES 1.5 %; MCH 31.6 pg (26.0-34.0); MCHC 33.3 g/dL (28.0-37.0); MCV 95.1 fL (80.0-100.0); MONOCYTES 2.8 %; NUCLEATED RBCS 0 /100WBC; PLATELET COUNT* 258 thou/uL (150-400); POLYS 95.4 %; RBC 2.25 mil/uL (4.50-6.00); RDW-CV 16.2 % (10.5-14.5)
[2021-03-12 05:36] LABS: ALBUMIN 2.5 g/dL (3.4-5.0); CALCIUM 8.3 mg/dL (8.5-10.1); CREATININE 0.6 mg/dL (0.6-1.3); MAGNESIUM 2.6 mg/dL (1.8-2.4); POTASSIUM 4.2 mmol/L (3.5-5.1); TOTAL BILIRUBIN 0.2 mg/dL (<0.1-1.0); TOTAL PROTEIN 4.7 g/dL (6.4-8.2)
--- NOTE | 2021-03-12 07:43 | NUR ---
RECEIVED REPORT AND ASSUMED CARE AT 1900. VSS. ICU MONITORING IN PLACE. PT NOT FOLLOWING COMMANDS, WILL WITHDRAWAL FROM PAIN. ASSESSMENT COMPLETED CHARTED. BED LOCKED IN LOWEST POSITION. POSITION CHANGED EVERY TWO HOURS AND PRN, HEELS OFF LOADED. VERSED GTT TITRATED DOWN, PRECEDEX GTT STARTED. PT HR DROPPED LOW 34 BPM, SLOW TITRATION. ROUNDING COMPLETED AND ALL NEEDS MET.
[2021-03-12 08:12] LABS: PO2 83.9 mmHg (75.0-100.0); pH 7.353 (7.340-7.450)
[2021-03-12 08:14] LABS: PCO2 53.5 mmHg (35.0-45.0)
[2021-03-12 11:44] LABS: BE 3.7 mmol/L (-2 to +3); PO2 90.9 mmHg (75.0-100.0); pH 7.375 (7.340-7.450)
[2021-03-12 11:46] LABS: PCO2 51.6 mmHg (35.0-45.0)
[2021-03-13] VITALS (29 sets, daily range): BP systolic 104–208; BP diastolic 35–70
[2021-03-13 05:20] LABS: HEMATOCRIT 23.7 % (42.0-52.0); HEMOGLOBIN 7.9 gm/dL (14.0-18.0); MCH 31.6 pg (26.0-34.0); MCHC 33.4 g/dL (28.0-37.0); MCV 94.6 fL (80.0-100.0); MPV 8.3 fl. (7.2-11.1); NUCLEATED RBCS 0 /100WBC; PLATELET COUNT* 258 thou/uL (150-400); RDW-CV 16.8 % (10.5-14.5); WBC 8.2 thou/uL (4.0-11.0)
[2021-03-13 05:47] LABS: ALBUMIN 2.4 g/dL (3.4-5.0); CALCIUM 8.4 mg/dL (8.5-10.1); CREATININE 0.6 mg/dL (0.6-1.3); MAGNESIUM 2.5 mg/dL (1.8-2.4); PHOSPHORUS* 2.4 mg/dL (2.5-4.9); POTASSIUM 4.3 mmol/L (3.5-5.1); TOTAL BILIRUBIN 0.2 mg/dL (<0.1-1.0)
[2021-03-13 06:37] LABS: ABSOLUTE LYMPHOCYTES 0.2 thou/uL (0.8-5.3); PLATELET ESTIMATE ADEQUATE
--- NOTE | 2021-03-13 08:28 | NUR ---
PT WAS ORIENTED TO SELF. PLEASANTLY CONFUSED THROUGHOUT THE NIGHT. DENIED PAIN AND NAUSEA. SR ON MONITOR. VSS. SLEPT OFF AND ON.
--- NOTE | 2021-03-13 13:49 | NUR ---
PLAN OF CARE: PT REMAINS ICU STATUS. PT CURRENTLY ON 4L HEATED HIGH FLOW O2. CM WILL REMAIN AVAILABLE TO ASSIST AND FOLLOW NEEDED.
[2021-03-13 18:58] LABS: CALCIUM 8.1 mg/dL (8.5-10.1); CREATININE 0.6 mg/dL (0.6-1.3); MAGNESIUM 2.7 mg/dL (1.8-2.4)
[2021-03-13 18:59] LABS: POTASSIUM 5.4 mmol/L (3.5-5.1)
--- NOTE | 2021-03-13 19:22 | NUR ---
TAKING BS MANUALLY ON MACHINE BS HIGH WITH LABS AT 523 TPN WASN'T STOPPED BEFORE
[2021-03-13 22:05] LABS: CALCIUM 8.6 mg/dL (8.5-10.1); CREATININE 0.5 mg/dL (0.6-1.3); MAGNESIUM 2.5 mg/dL (1.8-2.4); POTASSIUM 4.1 mmol/L (3.5-5.1)
[2021-03-14] VITALS (24 sets, daily range): BP systolic 117–171; BP diastolic 43–85
[2021-03-14 05:14] LABS: ABSOLUTE LYMPHOCYTES 0.3 thou/uL (0.8-5.3); ABSOLUTE MONOCYTES 0.6 thou/uL (0.0-1.2); ABSOLUTE NEUTROPHILS 9.6 thou/uL (1.6-8.1); BASOPHILS 0.1 %; HEMATOCRIT 25.5 % (42.0-52.0); HEMOGLOBIN 8.5 gm/dL (14.0-18.0); MCHC 33.5 g/dL (28.0-37.0); MCV 92.6 fL (80.0-100.0); MPV 8.1 fl. (7.2-11.1); NUCLEATED RBCS 0 /100WBC; PLATELET COUNT* 270 thou/uL (150-400); POLYS 90.9 %; RBC 2.75 mil/uL (4.50-6.00); RDW-CV 16.4 % (10.5-14.5); WBC 10.5 thou/uL (4.0-11.0)
--- NOTE | 2021-03-14 05:24 | NUR ---
0030-PT REFUSED TO WEAR BIPAP TONIGHT. PT SATS 95% ON 8LPN HFNC.
[2021-03-14 05:34] LABS: ALBUMIN 2.3 g/dL (3.4-5.0); CALCIUM 8.3 mg/dL (8.5-10.1); CREATININE 0.5 mg/dL (0.6-1.3); MAGNESIUM 2.4 mg/dL (1.8-2.4); TOTAL BILIRUBIN 0.3 mg/dL (<0.1-1.0); TOTAL PROTEIN 5.1 g/dL (6.4-8.2)
--- NOTE | 2021-03-14 06:24 | NUR ---
ASSUMED CARE OF PATIENT AT 1900. AWAKE ALL NIGHT, UNABLE TO SLEEP. ONE BOWEL MOVEMENT. BATH GIVEN. REMAINS ON 8L NASAL CANULA. WANTS TO GET UP WITH PT AND OT. WORKING VERY SLOWLY TOWARDS POC GOALS.
--- NOTE | 2021-03-14 15:11 | NUR ---
PLAN OF CARE: PT REMAINS TELE STATUS. PT EXTUBATED. PHYSICIAN INFORMS THAT THE PT IS SHOWING SOME IMPROVEMENT, BUT MAY END UP NEEDING LTAC WHEN MEDICALLY STABLE. CM WILL REMAIN AVAILABLE TO ASSIST AND FOLLOW NEEDED.
[2021-03-15] VITALS (23 sets, daily range): BP systolic 114–169; BP diastolic 45–81
[2021-03-15 03:55] LABS: ABSOLUTE LYMPHOCYTES 0.3 thou/uL (0.8-5.3); ABSOLUTE MONOCYTES 0.3 thou/uL (0.0-1.2); BASOPHILS 0.3 %; HEMATOCRIT 21.4 % (42.0-52.0); HEMOGLOBIN 7.2 gm/dL (14.0-18.0); LYMPHOCYTES 5.3 %; MCH 31.5 pg (26.0-34.0); MCHC 33.8 g/dL (28.0-37.0); MONOCYTES 5.6 %; MPV 8.2 fl. (7.2-11.1); NUCLEATED RBCS 0 /100WBC; PLATELET COUNT* 225 thou/uL (150-400); POLYS 88.8 %; RDW-CV 16.7 % (10.5-14.5); WBC 5.6 thou/uL (4.0-11.0)
[2021-03-15 04:12] LABS: ALBUMIN 2.4 g/dL (3.4-5.0); CALCIUM 7.9 mg/dL (8.5-10.1); CREATININE 0.5 mg/dL (0.6-1.3); TOTAL BILIRUBIN 0.3 mg/dL (<0.1-1.0); TOTAL PROTEIN 4.8 g/dL (6.4-8.2)
--- NOTE | 2021-03-15 07:45 | NUR ---
ASSUMED PT CARE AT APPROX. 1930. PT IS A/OX4, DROWSY BUT ARROUSABLE W/ NOISE. PT IS TRACING SR ON THE LICENSED VOCATIONAL NURSE. INTERMITTENT HTN NOTED LAST NOC. PT IS ON BIPAP 8L WITH AN FIO2 AT 45. PTS LUNG SOUNDS ARE COURSE AND DIMINISHED. PT IS NPO. PT HAS AN NG TUBE IN PLACE IN RIGHT NARE AT 60 , NOT CONNECTED TO SUCTION PER MD. PT HAS A KAVYA PICC TRIPLE LUMEN. PT HAS A SACRAL WOUND APPROX. 1 INCH IN LENGTH, RED AND OPEN. NO DRAINAGE NOTED ON DRESSING. AREA WAS CLEANSED W/ WOUND CLEANSER AND A NEW SACRAL FOAM BORDER DRESSING WAS PLACED. PT WAS REPOSITIONED Q2H. MEDICATIONS ADMINISTERED PRESCRIBED. CALL LIGHT WITHIN REACH. PT DENIED C/O PAIN. PT RESTED DURING THE NOC, WITH SOME RESTLESSNESS. PT CURRENTLY IN BED ASLEEP. REPORT GIVEN TO KELSEY HEATH.
--- NOTE | 2021-03-15 09:25 | NUR ---
ONGOING ASSESSMENT: PT SITTING UP IN BED. ON BIPAP TO NC- TOLERATING NC WELL PER RN. PT CONT ON PRECEDX. TPN. DNR.
--- NOTE | 2021-03-15 13:17 | NUR ---
WOUND NURSE: REQUESTED BY STAFF NURSE THAT I ASSESS PATIENT FOR BREAKDOWN ON SACRUM. HAS SMALL STAGE 2 PRESSURE INJURY ON SACRAL AREA MEASURING 1.5 X 0.5 X 0.1 CM. PRESENTS WITH PARTIAL TISSUE LOSS, AND RED, NONGRANULATING TISSUE IN THE WOUND BED. EDGES ARE FLAT AND ATTACHED. NURSING IS USING MOISTURE BARRIER CREAM AND SACRAL BORDERED FOAM. PATIENT IS ALSO ON ISOLIBRIUM MATTRESS, TURN SCHEDULE, AND SET UP TODAY FOR LATERAL ROTATION. AGREE WITH NURSING INTERVENTION AT THIS TIME. WILL MONITOR FOR FUTURE CHANGES IN PATIENT'S SKIN CHARACTERISTICS AND OBSERVE FOR IMPROVEMENT. PATIENT IS CURRENTLY NOT TEACHEABLE.
--- NOTE | 2021-03-15 13:24 | NUR ---
CM FAXED REFERRALS TO [facility] [phone] & [facility] [phone].
--- NOTE | 2021-03-15 17:38 | NUR ---
pt slightly confused throughout the shift. upon shift assessment, pt was alert and oriented to person and time, however he was unable to tell RN why he was in the hospital. his mentation slightly improved through the day, however, he would intermittenly forget why he is here. ST saw the pt and cleared him for a puree diet with nectar thick liquids. the pts appetite, however, remains poor and he has only had a few bits of food today. pt states he is not hungry, RN does fully asst the pt with his meals. VSS. no c/o of pain. attempted to have a BM, however, the pt only passed gas. pts was updated for the day at the bedside.
[2021-03-16] VITALS (14 sets, daily range): BP systolic 124–194; BP diastolic 70–85
[2021-03-16 06:18] LABS: HEMATOCRIT 23.7 % (42.0-52.0); HEMOGLOBIN 8.1 gm/dL (14.0-18.0); MCH 31.4 pg (26.0-34.0); MCHC 34.1 g/dL (28.0-37.0); MCV 92.2 fL (80.0-100.0); MPV 8.1 fl. (7.2-11.1); RBC 2.58 mil/uL (4.50-6.00); RDW-CV 16.5 % (10.5-14.5); WBC 6.3 thou/uL (4.0-11.0)
[2021-03-16 06:31] LABS: CALCIUM 8.2 mg/dL (8.5-10.1); CREATININE 0.4 mg/dL (0.6-1.3); POTASSIUM 4.1 mmol/L (3.5-5.1)
--- NOTE | 2021-03-16 09:36 | NUR ---
Icu rounds: Currently 4L NC and bipap prn and HS. Patient continues to remain confused. TPN. Precedex off yesterday. NG tube out. Patient started on clears with goal to progress to pureed diet. Per Rn, patient could downgrade to tele. Patient will need rehab vs. SNF. Therapies have been ordered and will need to see patient to help determine dc plans. CM to continue to follow for safe dc planning.
--- NOTE | 2021-03-16 18:53 | NUR ---
PATIENT TRANSFERRED FROM ICU AROUND 1430. I AGREE WITH THE ASSESSMENT OF THE THEATRICAL RIGGER CARING FOR PATIENT. OX1, CONFUSED AND WEAK, NC@5L, ST ON TELE, KAVYA TRIPLE PICC. TPN@80ML/HR. NECTAR THICK LIQUIDS, PUREED DIET- PILLS WHOLE IN APPLESAUCE.
[2021-03-17] VITALS: BP 185/66
[2021-03-17 04:00] VITALS: BP 156/75
[2021-03-17 04:44] LABS: ABSOLUTE LYMPHOCYTES 0.5 thou/uL (0.8-5.3); ABSOLUTE MONOCYTES 0.5 thou/uL (0.0-1.2); ABSOLUTE NEUTROPHILS 5.5 thou/uL (1.6-8.1); BASOPHILS 0.1 %; EOSINOPHILS 0.1 %; HEMATOCRIT 23.5 % (42.0-52.0); HEMOGLOBIN 7.9 gm/dL (14.0-18.0); LYMPHOCYTES 7.9 %; MCH 30.8 pg (26.0-34.0); MCHC 33.6 g/dL (28.0-37.0); MCV 91.6 fL (80.0-100.0); NUCLEATED RBCS 0 /100WBC; PLATELET COUNT* 265 thou/uL (150-400); POLYS 83.9 %; RBC 2.57 mil/uL (4.50-6.00); RDW-CV 16.7 % (10.5-14.5); WBC 6.6 thou/uL (4.0-11.0)
[2021-03-17 05:19] LABS: ALBUMIN 2.6 g/dL (3.4-5.0); CALCIUM 8.1 mg/dL (8.5-10.1); CREATININE 0.5 mg/dL (0.6-1.3); MAGNESIUM 2.2 mg/dL (1.8-2.4); POTASSIUM 3.8 mmol/L (3.5-5.1); TOTAL BILIRUBIN 0.3 mg/dL (<0.1-1.0); TOTAL PROTEIN 4.6 g/dL (6.4-8.2)
[2021-03-17 08:00] VITALS: BP 167/71
[2021-03-17 12:00] VITALS: BP 162/72
--- NOTE | 2021-03-17 12:44 | NUR ---
PLAN OF CARE: PT TRANSFERRED FROM ICU. PRIOR TO ADMIT PT ACTIVE AND INDEPENDENT WITH ADL'S. PT RESIDES AT HOME WITH SPOUSE. PT USED 2L O2 PRN AT HOME PRIOR TO ADMIT. PT HAS 0 HX OF HH OR SNF. INPT ARU CONSULT ORDERED. PT/OT/ST ALTHEA PENDING. PT WILL NEED TO BE OFF TPN, LESS CONFUSED, AND MEDICALLY STABLE OVERALL TO OBTAIN ACCEPTANCE TO INPT ARU. CM WILL REMAIN AVAILABLE TO ASSIST AND FOLLOW NEEDED.
--- NOTE | 2021-03-17 13:26 | NUR ---
ASSUMED CARE OF PATIENT THIS AM AT 0730. PATIENT IS ALERT, CONFUSED, ORIENTED TO PERSON ONLY. TELE SHOWS SR. HE HAS BEEN PULLING O2 OFF AT TIMES. O2 SATS DECREASED TO LOW 80S. PATIENT PLACED ON THE BIPAP. HE IS SLEEPING AT THIS TIME. HIS APPETITE REMAINS POOR. PATIENT REPOSITIONED Q 2 HR. NO FALLS OR INJURY.
[2021-03-17 16:00] VITALS: BP 155/68
[2021-03-17 20:00] VITALS: BP 149/67
[2021-03-18 00:41] VITALS: BP 156/81
[2021-03-18 04:57] VITALS: BP 151/66
[2021-03-18 07:34] LABS: HEMATOCRIT 22.6 % (42.0-52.0); MCHC 35.2 g/dL (28.0-37.0); MCV 93.8 fL (80.0-100.0); MPV 8.3 fl. (7.2-11.1); RBC 2.41 mil/uL (4.50-6.00); RDW-CV 16.9 % (10.5-14.5); WBC 6.5 thou/uL (4.0-11.0)
[2021-03-18 07:44] LABS: CALCIUM 7.1 mg/dL (8.5-10.1); CREATININE 0.5 mg/dL (0.6-1.3); POTASSIUM 5.7 mmol/L (3.5-5.1)
[2021-03-18 08:00] VITALS: BP 126/59
[2021-03-18 08:45] LABS: HEMATOCRIT 24.8 % (42.0-52.0); HEMOGLOBIN 8.4 gm/dL (14.0-18.0); MCH 30.9 pg (26.0-34.0); MCHC 33.7 g/dL (28.0-37.0); MCV 91.5 fL (80.0-100.0); MPV 7.6 fl. (7.2-11.1); NUCLEATED RBCS 0 /100WBC; PLATELET COUNT* 265 thou/uL (150-400); RBC 2.71 mil/uL (4.50-6.00); RDW-CV 16.6 % (10.5-14.5); WBC 7.4 thou/uL (4.0-11.0)
[2021-03-18 08:54] LABS: CALCIUM 8.2 mg/dL (8.5-10.1); CREATININE 0.5 mg/dL (0.6-1.3)
[2021-03-18 08:56] LABS: POTASSIUM 4.1 mmol/L (3.5-5.1)
[2021-03-18 08:59] LABS: ALBUMIN 2.4 g/dL (3.4-5.0); TOTAL BILIRUBIN 0.4 mg/dL (<0.1-1.0)
[2021-03-18 09:39] LABS: ABSOLUTE LYMPHOCYTES 0.2 thou/uL (0.8-5.3); ABSOLUTE MONOCYTES 0.5 thou/uL (0.0-1.2); ABSOLUTE NEUTROPHILS 6.7 thou/uL (1.6-8.1); PLATELET ESTIMATE ADEQUATE
[2021-03-18 12:00] VITALS: BP 132/58
[2021-03-18 16:00] VITALS: BP 145/65
--- NOTE | 2021-03-18 18:40 | NUR ---
RECEIVED REPORT. ASSUMED CARE OF PT AROUND 0730. AM ASSESSMENT AND VITALS COMPLETED CHARTED, MEDS PER EMAR. HERRERA IN PLACE TO DD. PT PROGRESSING TOWARDS GOALS TODAT - ABLE TO BE ON 4L PER NC. SAT UP FOR LUNCH AND DINNER IN BEDSIDE CHAIR. ABLE TO EAT 1/2 OF LUNCH AND 1/2 OF DINNER ALONG WITH A STRAWBERRY ENSURE, THICKENED. SMALL BM THIS SHIFT. OVERALL DOING MUCH BETTER TODAY. HELD OFF ON NG TUBE. DRESSING IN PLACE TO COCCYX WOUND. AT BEDSIDE THIS MORNING. FALL PRECAUTIONS IN PLACE. HOURLY ROUNDING PERFOMRED. CALL LIGHT WITHIN REACH.
[2021-03-18 20:00] VITALS: BP 152/66
[2021-03-19 00:06] VITALS: BP 151/56
[2021-03-19 04:04] VITALS: BP 150/64
[2021-03-19 06:28] LABS: HEMATOCRIT 24.7 % (42.0-52.0); HEMOGLOBIN 8.3 gm/dL (14.0-18.0); MCH 30.9 pg (26.0-34.0); MCHC 33.7 g/dL (28.0-37.0); MCV 91.7 fL (80.0-100.0); MPV 7.9 fl. (7.2-11.1); RBC 2.7 mil/uL (4.50-6.00); RDW-CV 16.7 % (10.5-14.5); WBC 9.9 thou/uL (4.0-11.0)
[2021-03-19 06:42] LABS: CALCIUM 8.2 mg/dL (8.5-10.1); CREATININE 0.4 mg/dL (0.6-1.3); POTASSIUM 4.4 mmol/L (3.5-5.1)
--- NOTE | 2021-03-19 07:43 | NUR ---
Shift uneventful. Pt aox2 to person and place. Pleasant and cooperative. Heart sounds s1s2. Running SR on telemetry. Lung sounds diminished on auscultation. SO2 92% on 6L NC, 96-98% on BIPAP w/ FIO2 of 40%. Pt is medically stable at this time.
[2021-03-19 09:35] VITALS: BP 141/62
[2021-03-19 12:00] VITALS: BP 154/67
[2021-03-19 16:00] VITALS: BP 109/91
--- NOTE | 2021-03-19 18:55 | NUR ---
RECEIVED REPORT. ASSUMED CARE OF PT AROUND 0730. AM ASSESSMENT AND VITALS COMPLETED CHARTED. MEDS PER EMAR. UP TO CHAIR FOR LUNCH AND DINNER AGAIN TODAY. ATE 1/2 OF EACH MEAL. SHARON OSBORN'Sravan - PT ABLE TO VOID THIS EVENING, 150 RETAINED IN THE BLADDER PER BLADDER SCAN. VISITED TWICE. DRESSING IN PLACE TO COCCYX WOUND. TPN TO STOP TONIGHT. SLOWLY PROGRESSING TOWARD GOALS. REMAINS CONFUSED. FALL PRECAUTIONS IN PLACE. CALL LIGHT WITHIN REACH. HOURLY ROUNDING PERFORMED.
[2021-03-19 20:00] VITALS: BP 160/62
--- NOTE | 2021-03-19 20:00 | NUR ---
RECEIVED REPORT AND ASSUMED CARE OF PT, ASSESSMENT COMPLETED. CONFUSED, BUT CALM AND COOPERATIVE. HAS BEEN AT BED SIDE BUT HAS LEFT NOW. ASSISTED WITH VOIDING PER URINAL. O2 ON AT 6L/HFC, ADJUSTED PER RT WITH SAT 92-93%. HAVING OCC MOIST NON-PROD COUGH. TELEMETRY SHOWING SR. WILL CONT TO MONITOR AND ASSIST NEEDED. WILL CONT TO MONITOR AND ASSIST NEEDED.
[2021-03-20] VITALS: BP 160/70
[2021-03-20 04:00] VITALS: BP 175/59
[2021-03-20 05:52] LABS: HEMATOCRIT 23.5 % (42.0-52.0); HEMOGLOBIN 7.9 gm/dL (14.0-18.0); MCHC 33.7 g/dL (28.0-37.0); MCV 91.8 fL (80.0-100.0); MPV 8.1 fl. (7.2-11.1); RBC 2.56 mil/uL (4.50-6.00); RDW-CV 16.6 % (10.5-14.5); WBC 8.2 thou/uL (4.0-11.0)
[2021-03-20 05:59] LABS: CREATININE 0.5 mg/dL (0.6-1.3); POTASSIUM 4.5 mmol/L (3.5-5.1)
--- NOTE | 2021-03-20 06:30 | NUR ---
SLEPT WELL. TOLERATED BIPAP ALL NIGHT. REPOSITIONING PT ONTO SIDE BUT IMMEDIATELY MOVES ONTO BACK. REMAINS CONFUSED BUT COOPERATIVE. TELEMETRY SHOWING SR. NO CHANGE IN ASSESSMENT. HS GOALS OF REST, SAFETY AND OXYGENATION ACHIEVED. HOURLY ROUNDING OBSERVED.
[2021-03-20 08:19] VITALS: BP 165/67
[2021-03-20 12:00] VITALS: BP 155/74
--- NOTE | 2021-03-20 13:06 | NUR ---
PLAN OF CARE: PLAN FOR THE PT TO TRANSFER TO INPT ARU WHEN MEDICALLY STABLE AND OFF TPN. PHYSICIAN INFORMS OF PLAN TO WEAN PT OFF TPN AND INCREASE HIS PO INTAKE. CM WILL REMAIN AVAILABLE TO ASSIST AND FOLLOW NEEDED.
[2021-03-20 16:00] VITALS: BP 164/75
[2021-03-20 20:00] VITALS: BP 152/74
--- NOTE | 2021-03-20 20:00 | NUR ---
RECEIVED REPORT AND ASSUMED CARE OF PT, ASSESSMENT COMPLETED. PT COOPERATIVE BUT CONFUSED, STATES THE CHICKENS WERE OVER THERE ON THE TABLE. STATES DOES NOT FEEL THE NEED TO VOID AT THIS TIME. TELEMETRY ON SHOWING SR. WILL CONT TO MONITOR AND ASSIST NEEDE.
[2021-03-21 00:53] VITALS: BP 150/71
[2021-03-21 04:01] VITALS: BP 148/74
--- NOTE | 2021-03-21 05:36 | NUR ---
AWAKE MOST OF NIGHT. LYING IN BED QUIETLY, OCC DOES MOVE BIPAP MASK AROUND. IV ATIVAN GIVEN X1 TO ASSIST WITH REST. ABLE TO TAKE HS MEDS WITH NECTAR THICK LIQ WITHOUT DIFFICULTY SWALLOWING OR CHOKING. AT 0030 ASSISTED PT TO VOID BUT UNABLE TO DO SO, BLADDER SCANNED FOR >[address] CATH WITHOUT DIFFICULTY FOR 850 CC OF CLR JORGITO URINE. NO CHANGE IN ASSESSMENT. TELEMETRY CONT TO SHOW SR. HS GOALS OF REST, SAFETY AND O2 MAINTAINED. HOURLY ROUNDING OBSERVED.
[2021-03-21 08:00] VITALS: BP 137/66
[2021-03-21 12:00] VITALS: BP 99/44
[2021-03-21 15:13] LABS: CALCIUM 8.3 mg/dL (8.5-10.1); CREATININE 0.7 mg/dL (0.6-1.3); MAGNESIUM 1.8 mg/dL (1.8-2.4); POTASSIUM 3.9 mmol/L (3.5-5.1)
[2021-03-21 16:00] VITALS: BP 145/65
[2021-03-21 20:00] VITALS: BP 138/71
[2021-03-22] VITALS: BP 156/74
[2021-03-22 04:00] VITALS: BP 132/54
[2021-03-22 04:47] LABS: HEMATOCRIT 22.5 % (42.0-52.0); HEMOGLOBIN 7.7 gm/dL (14.0-18.0); MCH 30.9 pg (26.0-34.0); MCV 91.1 fL (80.0-100.0); MPV 7.7 fl. (7.2-11.1); NUCLEATED RBCS 0 /100WBC; PLATELET COUNT* 260 thou/uL (150-400); RBC 2.47 mil/uL (4.50-6.00); RDW-CV 16.9 % (10.5-14.5); WBC 10.8 thou/uL (4.0-11.0)
[2021-03-22 05:27] LABS: ALBUMIN 2.1 g/dL (3.4-5.0); CREATININE 0.7 mg/dL (0.6-1.3); MAGNESIUM 1.7 mg/dL (1.8-2.4); POTASSIUM 3.2 mmol/L (3.5-5.1); TOTAL BILIRUBIN 0.7 mg/dL (<0.1-1.0); TOTAL PROTEIN 4.8 g/dL (6.4-8.2)
[2021-03-22 06:16] LABS: ABSOLUTE LYMPHOCYTES 0.3 thou/uL (0.8-5.3); ABSOLUTE MONOCYTES 0.1 thou/uL (0.0-1.2); ABSOLUTE NEUTROPHILS 10.4 thou/uL (1.6-8.1); ANISOCYTOSIS 1+; PLATELET ESTIMATE ADEQUATE; POIKILOCYTOSIS 1+
--- NOTE | 2021-03-22 06:34 | NUR ---
ASSUMED CARE OF PT AFTER REPORT AT 1930. PT A&OX1. CONFUSED. VSS. PHYSICAL ASSESSMENT COMPLETED AND CHARTED. PT ON O2 AT 5LNC/BIPAP AT HS. PT TRACING SR/PVC ON TELE. PT TURNED TO SIDES. PT WITH EPISODES OF INCONTINENT BLADDER. FALL PRECAUTIONS IN PLACE.
--- NOTE | 2021-03-22 10:23 | NUR ---
PLAN OF CARE: PLAN REMAINS FOR PT TO TX TO INPT ARU WHEN PENDING BED AVAILABILITY AND PT BEING MEDICALLY STABLE. PT NOW OFF TPN AND ON PUREE DIET. PT REMAINS ON 5L-6L O2 DURING THE DAY AND BIPAP AT [facility]. CM WILL REMAIN AVAILABLE TO ASSIST AND FOLLOW NEEDED.
[2021-03-22 12:41] VITALS: BP 131/63
[2021-03-22 17:42] VITALS: BP 129/56
--- NOTE | 2021-03-22 19:02 | NUR ---
Pt remains alert, but confused and impulsive at times. On 5L O2 per NC. Desats when off O2 (pt pulled O2 off earlier this afternoon). VSS. Poor PO intake today for all 3 meals. Did take some Ensure with supper. Will continue to monitor.
[2021-03-22 20:12] VITALS: BP 147/66
[2021-03-23] VITALS (7 sets, daily range): BP systolic 126–174; BP diastolic 58–78
--- NOTE | 2021-03-23 04:20 | NUR ---
PT ALERT, ORIENTED TO SELF WITH CONFUSION. VSS ON 5L HF NC, BIPAP WHILE SLEEPING. IV SALINE LOCKED. PT REPOSTIONED Q2H. MG AND K+ REPLACED. PT SR/ST ON TELE MONITOR. NO C/O PAIN OR DISCOMFORT. PT SLEEPING INTERMITTANTLY, ASSESSMENTS AND HOURLY ROUNDINGS COMPLETE, WILL CONTINUE TO MONITOR.
[2021-03-23 05:25] LABS: HEMATOCRIT 22.9 % (42.0-52.0); HEMOGLOBIN 7.8 gm/dL (14.0-18.0); MCH 31.1 pg (26.0-34.0); MCHC 34.2 g/dL (28.0-37.0); MPV 7.9 fl. (7.2-11.1); RBC 2.51 mil/uL (4.50-6.00); WBC 13.7 thou/uL (4.0-11.0)
[2021-03-23 05:36] LABS: CALCIUM 8.2 mg/dL (8.5-10.1); CREATININE 0.6 mg/dL (0.6-1.3)
--- NOTE | 2021-03-23 14:02 | NUR ---
PLAN OF CARE: INPT REHAB INFORMS THAT D/T PT'S CONTINUED CONFUSION AND INABILITY TO COMPLETE THERAPIES REHAB NOW RECOMMENDING SNF FOR PT AT D/C. PHYSICIAN INFORMS THAT THE PT IS NOW MEDICALLY STABLE. CM SPOKE TO THE PT AND HIS SPOUSE TO INFORM OF THE SNF RECOMMENDATION. PT'S SPOUSE INITIALLY RESISITANT. CM PROVIDED PT'S SPOUSE WITH PRINTED SNF LIST AND PROVIDED INFO AND ENCOURAGEMENT TO VISIT SNF'S. PT'S SPOUSE INFORMS OF 2 CHOICES FOR SNF INCLUDING: #1 [facility], #2 [facility]. CM FAXED REFERRAL TO BOTH AND AWAITING CALL BACK. CM WILL REMAIN AVAILABLE TO ASSIST AND FOLLOW NEEDED.
--- NOTE | 2021-03-23 16:48 | NUR ---
Recieved a call from about the patient's condition. Per , she wants to know why the patient is so confused and she wants to know how the confusion will be corrected. She would like a family meeting tomorrow at 9am with Dr. Link to discuss the plan of care. She would like to 3 way her sons in so they can hear the discussion. Messaged Dr. Link to ask if 9am tomorrow works. Awaiting response at this time. also asked for more clarity about rehab vs. SNF. Advised her that the patient does not qualify for rehab mainly due to the inability to follow commands and SNF is more appropriate. Advised her that 2 referrals were sent by to [facility] and [facility]. was worried that the hospital was planning to "kick out" her . Advised her that patient will remain in the hospital through the weekned. SNF will have to accept first and then intiate auth. With it being a holiday weekend auth's will most likely be delayed. verbalized undertanding and now feels a sense of relief. Will update REYNALDO about the above conversation. CM to continue to follow for safe dc planning
--- NOTE | 2021-03-23 18:59 | NUR ---
Pt alert, confused. Oriented to self and . Pt pleasant, impulsive at times. Desats when off O2. Pt removed O2 twice during shift. Currently on 5L per [facility] during the day, and wears BIPAP overnight. Small BM per BSC today. Some improvement with po intake today compared to yesterday. VSS. HR 120s-130s this am. Received order to increase metoprolol to 50 mg BID, and HR 100s for most of shift following dose. Plan is to discharge pt to SNF. Will continue to monitor.
[2021-03-24 03:44] VITALS: BP 159/70
[2021-03-24 04:00] VITALS: BP 152/69
[2021-03-24 04:48] LABS: ABSOLUTE LYMPHOCYTES 0.2 thou/uL (0.8-5.3); ABSOLUTE MONOCYTES 0.3 thou/uL (0.0-1.2); BASOPHILS 0.1 %; HEMATOCRIT 23.1 % (42.0-52.0); HEMOGLOBIN 7.8 gm/dL (14.0-18.0); LYMPHOCYTES 2.1 %; MCHC 33.9 g/dL (28.0-37.0); MCV 91.5 fL (80.0-100.0); MONOCYTES 2.9 %; MPV 8.4 fl. (7.2-11.1); NUCLEATED RBCS 0 /100WBC; PLATELET COUNT* 236 thou/uL (150-400); POLYS 94.9 %; RBC 2.52 mil/uL (4.50-6.00); WBC 10.6 thou/uL (4.0-11.0)
[2021-03-24 05:06] LABS: CALCIUM 8.4 mg/dL (8.5-10.1); CREATININE 0.6 mg/dL (0.6-1.3); MAGNESIUM 1.6 mg/dL (1.8-2.4); POTASSIUM 3.6 mmol/L (3.5-5.1)
--- NOTE | 2021-03-24 06:54 | NUR ---
Alert and oriented x 2 and forgetful. 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 He hasn't worked with PT much because of them not knowing how much weight he can place on his upper extremities. No nausea and vomiting this shift. Meds given with applesauce. He is high flow O2 at 5L n/c and bipap at night. He is incontinent of b&B. He has slept intermittenly.
[2021-03-24 07:50] VITALS: BP 142/67
[2021-03-24 11:27] VITALS: BP 123/50
--- NOTE | 2021-03-24 12:59 | NUR ---
PLAN OF CARE: PLAN FOR THE PT TO D/C TO SNF PENDING BED AVAILABILITY. [facility] INFORMS OF ABILITY TO ACCEPT PT PENDING INSURANCE AUTH. PT/OT F/U NOTES WILL BE NEEDED OVER THE WEEKEND TO KEEP CLINICAL INFO CURRENT AND ASSIST WITH OBTAINING AUTH. CM TO FAX UPDATED PT/OT NOTES WHEN AVAILABLE. PHYSICIAN TO MEET WITH PT FOR FAMILY MEETING TODAY AT 1300 TO DISCUSS FAMILIES CONCERNS. CM WILL REMAIN AVAILABLE TO ASSIST AND FOLLOW NEEDED.
[2021-03-24 15:19] VITALS: BP 140/57
[2021-03-24 20:00] VITALS: BP 145/57
[2021-03-25] MEDS ORDERED: LOPRESSOR50 MG PO (00:29)
[2021-03-25 00:34] VITALS: BP 136/67
[2021-03-25 03:49] VITALS: BP 155/68
--- NOTE | 2021-03-25 06:21 | NUR ---
PT ALERT ORIENTED TO SELF AND SOMETIMES PLACE. INITIAL O2 AT 5 LITERS NC. ON BIPAP HS. PT CO OF CHEST PAIN AT 4/10. DR PEOPLES NOTIFIED. ORDERS FOR EKG TROP AND MEDICATION. PT TROP NEGATIVE. PT SLEEPING NOW.
[2021-03-25 08:25] VITALS: BP 135/62
[2021-03-25 12:17] VITALS: BP 113/53
--- NOTE | 2021-03-25 16:28 | NUR ---
RECEIVED REPORT AROUND 0715. ASSUMED CARE. VS AND ASSESSMENT CHARTED. IV INTACT RIGHT UPPER ARM PICC TRIPLE LUMEN. HEART MONITOR ATTACHED AT SR/ST. PT LYING IN BED THIS AM. SAT UP IN CHAIR FOR A WHILE. MAX ASSIST. CAN TAKE VERY SMALL STEPS. CURRENTLY ON BIPAP. BACK IN BED. PILLOWS UNDERNEATH BOTTOM. Q2 TURNS. MEDS GIVEN PER MAR. HOURLY ROUNDING PERFORMED. UPDATED ON PT. VISITED THIS SHIFT. SPUTUM TO BE COLLECTED. PT DOES NOT EAT MUCH OF FOOD. WILL TAKE A COUPLE BITES HERE AND THERE. CALL LIGHT WITH IN REACH. WILL CONTINUE TO MONITOR.
[2021-03-25 17:39] VITALS: BP 108/62
[2021-03-25 20:00] VITALS: BP 132/66
[2021-03-26] VITALS (7 sets, daily range): BP systolic 92–124; BP diastolic 38–62
--- NOTE | 2021-03-26 01:28 | NUR ---
PT ALERT ORIENTED TO SELF SOMETIMES PLACE. ON BIPAP FOR SLEEP. O2 AT 85% PLASTERING SUPERVISOR TRACING ST. DENIES PAIN. INCONTINENT OF BOWEL AND BLADDER. PT COUGHING WHEN TAKING HS PO MEDS. DR RAMAN NOTIFIED OF COUGHING.
--- NOTE | 2021-03-26 06:12 | NUR ---
NO COUGHING WITH PO MEDS THIS AM.
[2021-03-26 12:42] LABS: PCO2 34.5 mmHg (35.0-45.0); pH 7.486 (7.340-7.450)
[2021-03-26 13:27] LABS: HEMATOCRIT 20.1 % (42.0-52.0); MCH 30.9 pg (26.0-34.0); MCHC 33.8 g/dL (28.0-37.0); MCV 91.3 fL (80.0-100.0); MPV 8.5 fl. (7.2-11.1); NUCLEATED RBCS 0 /100WBC; RDW-CV 17.6 % (10.5-14.5); WBC 5.7 thou/uL (4.0-11.0)
[2021-03-26 13:34] LABS: PLATELET COUNT* 128 thou/uL (150-400)
[2021-03-26 13:35] LABS: HEMOGLOBIN 6.8 gm/dL (14.0-18.0)
[2021-03-26 14:15] LABS: ABSOLUTE LYMPHOCYTES 0.1 thou/uL (0.8-5.3); ABSOLUTE MONOCYTES 0.1 thou/uL (0.0-1.2); ABSOLUTE NEUTROPHILS 5.6 thou/uL (1.6-8.1); PLATELET ESTIMATE ADEQUATE
[2021-03-26 14:16] LABS: ANISOCYTOSIS 2+
--- NOTE | 2021-03-26 18:28 | NUR ---
RECEIVED REPORT AROUND 0715. ASSUMED CARE. VS AND ASSESSMENT CHARTED. IV INTACT RIGHT UPPER ARM PICC TRIPLE LUMEN. HEART MONITOR ATTACHED AT SR/ST. Q2 TURNS. REDNESS ON BOTTOM. BARRIER CREAM APPLIED. INCONTINENT OF BOWEL AND URINE. NO BOWEL MOVEMENT THIS SHIFT. BIPAP ALL SHIFT. FAMILY EDUCATED NUMEROUS TIMES ON PRIORITY OF CARE. FAMILY DOES NOT WANT PT TO BE INTUBATED. PT IS DNR. NPO STATUS DUE TO BIPAP USE. ABLE TO GIVE SIPS OF WATER. ADDRESSED TO FAMILY THAT THE DOCTOR TAKING THE PT TOMORROW WOULD ADVISE THEM ON THE PLAN OF NUTRITION. PT RECEIVED A UNIT OF BLOOD THIS SHIFT. CURRENTLY INFUSING. BLOOD VITALS CHARTED. HELD LASIX DUE TO LOW BP. MEDS GIVEN PER MAR. PRIORTY MEDS DUE TO OXYGEN DEMANDS. CALL LIGHT WITH IN REACH. WILL CONTINUE TO MONITOR.
[2021-03-26 20:59] LABS: MCH 30.8 pg (26.0-34.0); MCHC 34.2 g/dL (28.0-37.0); MCV 89.9 fL (80.0-100.0); MPV 9.6 fl. (7.2-11.1); RBC 2.89 mil/uL (4.50-6.00); RDW-CV 16.7 % (10.5-14.5); WBC 7.4 thou/uL (4.0-11.0)
[2021-03-26 21:01] LABS: HEMOGLOBIN 8.9 gm/dL (14.0-18.0)
[2021-03-27] VITALS: BP 114/60
[2021-03-27 04:00] VITALS: BP 138/62
--- NOTE | 2021-03-27 06:26 | NUR ---
ASSUMED CARE OF PT AFTER REPORT AT 1930. PT A&O1. CONFUSED. IMPULSIVE. VSS. PHYSICAL ASSESSMENT COMPLETED AND CHARTED. PT ON CONTINUOUS BIPAP .PT TRACING SR/ST/PVC ON TELE. PT WITH EPISODE OF INCONTINENT BLADDER. FALL PRECAUTIONS IN PLACE. CALL LIGHT WITHIN REACH.
[2021-03-27 08:00] VITALS: BP 114/53
--- NOTE | 2021-03-27 10:50 | EKG ---
[place] [address] ELECTROCARDIOGRAM REPORT Name: MAK ROSA Room: [address] ADM IN ..#: [id number] Admission: 02/27/21 Attend Phys: Omi Larkin Discharge: Date of : 53 Date of Service: 03/25/21 0446 Report #: [id number] THIS REPORT FOR: //name// [facility] Test Date: 2021-03-25 Test Time: 04:46:51 Pat Name: MAK ROSA Department: Room: [address] Gender: M Assisted Living Assistant: [email or web address] : 1955 Requested By: Smith Link Order Number: [id number] Reading MD: Ruben Spencer Measurements Intervals [place] Rate: 118 P: 56 ID: [id number] QRS: 66 QRSD: 98 T: 253 QT: 310 QTc: 435 Interpretive Statements Sinus tachycardia artifact noted Repol abnrm suggests ischemia, anterolateral Compared to ECG 03/09/2021 09:56:10 Sinus rhythm no longer present Possible ischemia still present Electronically Signed On 03-27-2021 10:49:58 CDT by Ruben Spencer [email or web address] <ELECTRONICALLY SIGNED> By: Ruben Spencer MD, [facility] 03/27/21 1049 0446 [id number] Ruben Spencer MD, [facility] /EPI
[2021-03-27 11:03] VITALS: BP 107/48
--- NOTE | 2021-03-27 15:32 | NUR ---
Dr. Lara ordered consult for hospice. Spoke with . No hospice selected. She will provide 24/7 care for him in their home. They have O2, but they need a bed. Consulted [facility]. They will call for a meeting today. US faxing requested info to them. Plan for likely discharge tomorrow to home on hospice. tearful but in agreement.
[2021-03-27 17:08] VITALS: BP 115/40
--- NOTE | 2021-03-27 18:42 | NUR ---
RECEIVED REPORT AROUND 0715. ASSUMED CARE. VS AND ASSESSMENT CHARTED. IV INTACT RIGHT UPPER ARM PICC LINE. HEART MONITOR ATTACHED AT ST/SR. PT TOLERATED HEATED HI FLOW THROUGH OUT SHIFT. HOSPICE SET UP TODAY. WILL GO HOME TOMORROW WITH HOSPICE. FAMILY UPDATED ON SITUATION. PT PLEASANTLY CONFUSED. MEDS GIVEN PER DEC. HOURLY ROUNDING PERFORMED. MAX ASSIST. PT DID SIT UP IN CHAIR FOR A LITTLE WHILE THIS SHIFT. BACK IN BED CURRENTLY. Q2 TURNS. OUTPATIENT DNR PAPERWORK IN CHART FOR SPOUSE TO SIGN. HOSPICE TO BE CALLED WITH ESTIMATED TIME OF ARRIVAL TOMORROW. ALL ORDERS FAXED TO HOSPICE. CALL LIGHT WITH IN REACH. WILL CONTINUE TO MONITOR.
[2021-03-27 20:00] VITALS: BP 104/47
[2021-03-28 00:38] VITALS: BP 100/49
[2021-03-28 03:49] VITALS: BP 129/55
[2021-03-28 05:04] LABS: HEMATOCRIT 27.9 % (42.0-52.0); HEMOGLOBIN 9.7 gm/dL (14.0-18.0); MCH 30.9 pg (26.0-34.0); MCHC 34.6 g/dL (28.0-37.0); MCV 89.2 fL (80.0-100.0); MPV 10.1 fl. (7.2-11.1); RBC 3.12 mil/uL (4.50-6.00); RDW-CV 17.2 % (10.5-14.5); WBC 7.1 thou/uL (4.0-11.0)
[2021-03-28 05:18] LABS: CALCIUM 8.2 mg/dL (8.5-10.1); CREATININE 0.7 mg/dL (0.6-1.3)
[2021-03-28 05:22] LABS: POTASSIUM 2.2 mmol/L (3.5-5.1)
--- NOTE | 2021-03-28 05:36 | NUR ---
0430- PT RR IN MID TO UPPER 30'S SEVERE ACCESORY MUSCLE USE. PT APPEARS TO BE IN A KUASMAULS BREATHING PATTERN. CURRENT BIPAP SETTINGS FIO2 100%. PT SATS 84% TO 86%. PT NOT RESPONSIVE. PT NURSE AWARE AND MONITORING CLOSELY.
--- NOTE | 2021-03-28 07:01 | NUR ---
ASSUMED CARE OF PT AFTER REPORT AT 1930. PT CONFUSED. PHYSICAL ASSESSMENT COMPLETED AND CHARTED. PT ON HIFLOW NC 60L/100%. PT O2 SAT DECREASED TO 85-87%-PLACED ON BIPAP-O2 SAT 83-89%. PT HR UP TO 120'S. PT TRACING SR/ST/PVC ON TELE. PT WITH EPISODES OF INCONTINENT BLADDER. UPDATED SHOSHANA () REGARDING PT CURRENT SITUATION THIS AM. COMMUNICATES UNDERSTANDING. FALL PRECAUTIONS IN PLACE.
[2021-03-28 08:32] VITALS: BP 122/58
[2021-03-28 12:00] VITALS: BP 133/62
--- NOTE | 2021-03-28 16:13 | NUR ---
PT DISCHARGED ON CPAP WITH HOSPICE AT HOME FAMILY AT HOME WAITING FOR HIM SHARON PUT IN PICC LINE REMOVED TO KAVYA
--- NOTE | 2021-03-28 16:30 | NUR ---
PLAN OF CARE: PHYSICIAN INFORMS OF PLAN FOR PT TO D/C HOME TODAY WITH HOSPICE. HOSPICE ARRANGED BY NURSING AND ASSOCIATE PROFESSOR OF SURGERY OVER THE WEEKEND WITH [facility]. CM CALLED AND CONFIRMED THIS INFO WITH THE PT'S SPOUSE AND [facility]. ALL DME DELIVERED. [facility] NON EMERGENT TRANSPORT INFORMED OF THE NEED TO TRANSPORT PT HOME ON HOSPICE AND AWARE OF HIGH O2 NEEDS (60L BIPAP AND 40% FIO2). [facility] INFORMS OF ABILITY TO TRANSPORT PT WITH [facility]. [facility] INFORMED AND READY FOR PT AT HIS HOME. OUT OF THE HOSPITAL DNR ON THE CHART, FAXED TO [facility], AND COPY SENT WITH PT. CM WILL REMAIN AVAILABLE TO ASSIST AND FOLLOW NEEEDED. [facility] HOSPICE PHONE: [phone] FAX: [phone]
== END 2021-03-28 16:14 | disposition hospice, home (50) | DRG 870 ==
LOC: M.ERS 07:01 → M.TBA-ER 09:09 → M.2W 09:09 → M.TBA-ER 13:37 → M.2W 13:50 → M.ICU 18:44 → M.2W 21:38 → M.ICU 21:38 → M.2W 03-16 14:14
PROVIDERS: Emergency Medicine; Family Medicine; Internal Medicine; Internal Medicine Critical Care Medicine; Internal Medicine Gastroenterology; Internal Medicine Nephrology; Orthopaedic Surgery; Pediatrics; Surgery; ADMIT Internal Medicine; ATTEND Internal Medicine
PROC: 5A1945Z Respiratory Ventilation, 24-96 Consecutive Hours (ICD-10-PCS; 2021-02-27)
PROC: 5A0935A Assistance with Respiratory Ventilation, Less than 24 Consecutive Hours, High Flow/Velocity Cannula (ICD-10-PCS; 2021-02-27)
PROC: 0BH17EZ Insertion of Endotracheal Airway into Trachea, Via Natural or Artificial Opening (ICD-10-PCS; 2021-02-27)
PROC: 4A133B1 Monitoring of Arterial Pressure, Peripheral, Percutaneous Approach (ICD-10-PCS; principal; 2021-02-28)
PROC: 02HV33Z Insertion of Infusion Device into Superior Vena Cava, Percutaneous Approach (ICD-10-PCS; principal; 2021-02-28)
PROC: 0D9670Z Drainage of Stomach with Drainage Device, Via Natural or Artificial Opening (ICD-10-PCS; principal; 2021-02-28)
PROC: 03HY32Z Insertion of Monitoring Device into Upper Artery, Percutaneous Approach (ICD-10-PCS; principal; 2021-02-28)
PROC: B548ZZA Ultrasonography of Superior Vena Cava, Guidance (ICD-10-PCS; principal; 2021-02-28)
PROC: 4A133J1 Monitoring of Arterial Pulse, Peripheral, Percutaneous Approach (ICD-10-PCS; principal; 2021-02-28)
PROC: 0DJ08ZZ Inspection of Upper Intestinal Tract, Via Natural or Artificial Opening Endoscopic (ICD-10-PCS; 2021-03-02)
PROC: 0BH18EZ Insertion of Endotracheal Airway into Trachea, Via Natural or Artificial Opening Endoscopic (ICD-10-PCS; 2021-03-08)
PROC: 5A1955Z Respiratory Ventilation, Greater than 96 Consecutive Hours (ICD-10-PCS; 2021-03-08)
PROC: 5A09357 Assistance with Respiratory Ventilation, Less than 24 Consecutive Hours, Continuous Positive Airway Pressure (ICD-10-PCS; 2021-03-12)
PROC: 5A0935A Assistance with Respiratory Ventilation, Less than 24 Consecutive Hours, High Flow/Velocity Cannula (ICD-10-PCS; 2021-03-12)
PROC: 5A0955A Assistance with Respiratory Ventilation, Greater than 96 Consecutive Hours, High Flow/Velocity Cannula (ICD-10-PCS; 2021-03-13)
PROC: 5A09357 Assistance with Respiratory Ventilation, Less than 24 Consecutive Hours, Continuous Positive Airway Pressure (ICD-10-PCS; 2021-03-14)
PROC: 5A0935A Assistance with Respiratory Ventilation, Less than 24 Consecutive Hours, High Flow/Velocity Cannula (ICD-10-PCS; 2021-03-14)
PROC: 5A09357 Assistance with Respiratory Ventilation, Less than 24 Consecutive Hours, Continuous Positive Airway Pressure (ICD-10-PCS; 2021-03-15)
PROC: 5A0935A Assistance with Respiratory Ventilation, Less than 24 Consecutive Hours, High Flow/Velocity Cannula (ICD-10-PCS; 2021-03-15)
PROC: 5A09357 Assistance with Respiratory Ventilation, Less than 24 Consecutive Hours, Continuous Positive Airway Pressure (ICD-10-PCS; 2021-03-16)
PROC: 5A09357 Assistance with Respiratory Ventilation, Less than 24 Consecutive Hours, Continuous Positive Airway Pressure (ICD-10-PCS; 2021-03-17)
PROC: 5A09357 Assistance with Respiratory Ventilation, Less than 24 Consecutive Hours, Continuous Positive Airway Pressure (ICD-10-PCS; 2021-03-18)
PROC: 5A0955A Assistance with Respiratory Ventilation, Greater than 96 Consecutive Hours, High Flow/Velocity Cannula (ICD-10-PCS; 2021-03-19)
PROC: 5A09357 Assistance with Respiratory Ventilation, Less than 24 Consecutive Hours, Continuous Positive Airway Pressure (ICD-10-PCS; 2021-03-19)
PROC: 5A0955A Assistance with Respiratory Ventilation, Greater than 96 Consecutive Hours, High Flow/Velocity Cannula (ICD-10-PCS; 2021-03-20)
PROC: 5A0955A Assistance with Respiratory Ventilation, Greater than 96 Consecutive Hours, High Flow/Velocity Cannula (ICD-10-PCS; 2021-03-21)
PROC: 5A09357 Assistance with Respiratory Ventilation, Less than 24 Consecutive Hours, Continuous Positive Airway Pressure (ICD-10-PCS; 2021-03-21)
PROC: 5A09357 Assistance with Respiratory Ventilation, Less than 24 Consecutive Hours, Continuous Positive Airway Pressure (ICD-10-PCS; 2021-03-22)
PROC: 5A0935A Assistance with Respiratory Ventilation, Less than 24 Consecutive Hours, High Flow/Velocity Cannula (ICD-10-PCS; 2021-03-22)
PROC: 5A09357 Assistance with Respiratory Ventilation, Less than 24 Consecutive Hours, Continuous Positive Airway Pressure (ICD-10-PCS; 2021-03-23)
PROC: 5A0955A Assistance with Respiratory Ventilation, Greater than 96 Consecutive Hours, High Flow/Velocity Cannula (ICD-10-PCS; 2021-03-23)
PROC: 5A0955A Assistance with Respiratory Ventilation, Greater than 96 Consecutive Hours, High Flow/Velocity Cannula (ICD-10-PCS; 2021-03-24)
PROC: 5A09357 Assistance with Respiratory Ventilation, Less than 24 Consecutive Hours, Continuous Positive Airway Pressure (ICD-10-PCS; 2021-03-24)
PROC: 5A09357 Assistance with Respiratory Ventilation, Less than 24 Consecutive Hours, Continuous Positive Airway Pressure (ICD-10-PCS; 2021-03-25)
PROC: 5A0955A Assistance with Respiratory Ventilation, Greater than 96 Consecutive Hours, High Flow/Velocity Cannula (ICD-10-PCS; 2021-03-25)
PROC: 5A09357 Assistance with Respiratory Ventilation, Less than 24 Consecutive Hours, Continuous Positive Airway Pressure (ICD-10-PCS; 2021-03-26)
PROC: 30233N1 Transfusion of Nonautologous Red Blood Cells into Peripheral Vein, Percutaneous Approach (ICD-10-PCS; 2021-03-26)
PROC: 5A09357 Assistance with Respiratory Ventilation, Less than 24 Consecutive Hours, Continuous Positive Airway Pressure (ICD-10-PCS; 2021-03-27)
PROC: 5A0935A Assistance with Respiratory Ventilation, Less than 24 Consecutive Hours, High Flow/Velocity Cannula (ICD-10-PCS; 2021-03-27)
PROC: 5A09357 Assistance with Respiratory Ventilation, Less than 24 Consecutive Hours, Continuous Positive Airway Pressure (ICD-10-PCS; 2021-03-28)
DX: A41.9 Sepsis, unspecified organism (principal); N17.0 Acute kidney failure with tubular necrosis; J69.0 Pneumonitis due to inhalation of food and vomit; R65.21 Severe sepsis with septic shock; I21.19 ST elevation (STEMI) myocardial infarction involving other coronary artery of inferior wall; J80 Acute respiratory distress syndrome; K56.609 Unspecified intestinal obstruction, unspecified as to partial versus complete obstruction; K56.7 Ileus, unspecified; K92.1 Melena; E78.5 Hyperlipidemia, unspecified; I73.9 Peripheral vascular disease, unspecified; E78.00 Pure hypercholesterolemia, unspecified; F17.210 Nicotine dependence, cigarettes, uncomplicated; K21.00 Gastro-esophageal reflux disease with esophagitis, without bleeding; I12.9 Hypertensive chronic kidney disease with stage 1 through stage 4 chronic kidney disease, or unspecified chronic kidney disease; N18.9 Chronic kidney disease, unspecified; D50.9 Iron deficiency anemia, unspecified; K44.9 Diaphragmatic hernia without obstruction or gangrene; I25.10 Atherosclerotic heart disease of native coronary artery without angina pectoris; E87.6 Hypokalemia; J43.9 Emphysema, unspecified; N40.0 Benign prostatic hyperplasia without lower urinary tract symptoms; R73.9 Hyperglycemia, unspecified; I95.9 Hypotension, unspecified; Z66 Do not resuscitate; Z95.1 Presence of aortocoronary bypass graft; Z79.82 Long term (current) use of aspirin; Z79.899 Other long term (current) drug therapy; Z88.8 Allergy status to other drugs, medicaments and biological substances; Z90.49 Acquired absence of other specified parts of digestive tract